=== PATIENT | male | born 1980 | race Caucasian/White ===

== ENCOUNTER 2018-03-12 16:38 | Emergency (ER) | payer OTHER ==
[2018-03-12 16:52] VITALS: TEMP 98.3
--- NOTE | 2018-03-12 17:37 | ED ---
General Adult HPI - General Chief complaint: Skin/Abscess/Foreign Body Stated complaint: cyst/leg & low back pain Time Seen by Provider: 03/12/18 17:18 Source: patient, RN notes reviewed Mode of arrival: ambulatory Limitations: no limitations - History of Present Illness Initial comments: Patient is a 37-year-old male who presents the emergency department with complaints of pilonidal cyst that he reports having for 8 years that has worsened in the past 2 months. He reports that he is supposed to see his PCP on March 23 to receive a referral to a surgeon for removal of the pilonidal cyst. He reports this was first diagnosed by a pain medicine doctor in [place] and that he had x-rays and an MRI done. He reports that the area has never been drained or had any kind of surgery done. He reports that he was on Bactrim 2 weeks ago which was prescribed by an ER provider. He also complains of back pain radiating to the chest for the past 2 weeks; he reports that he has has this off and on for a few months. He denies any cardiac or pulmonary disease history. Patient denies any recent cough, fever, chills, shortness of breath, abdominal pain, nausea or vomiting, numbness or tingling, headaches or visual changes, or any other complaints. - Related Data Previous Rx's Medication Instructions Recorded Clindamycin [Cleocin] 450 mg PO Q8H 7 Days capsule 03/12/18 Allergies Allergy/AdvReac Type Severity Reaction Status Date / Time Penicillins Allergy Anaphylaxis Verified 03/12/18 16:52 Review of Systems ROS Statement: Those systems with pertinent positive or pertinent negative responses have been documented in the HPI. ROS Other: All systems not noted in ROS Statement are negative. Past Medical History Additional Past Medical History / Comment(s): Rectal Cyst. History of Any Multi-Drug Resistant Organisms: None Reported Past Surgical History: Ear Surgery Past Psychological History: No Psychological Hx Reported Smoking Status: Current every day smoker Past Alcohol Use History: None Reported Past Drug Use History: None Reported General Exam Limitations: no limitations General appearance: alert, in no apparent distress Head exam: Present: atraumatic, normocephalic Eye exam: Present: normal appearance Respiratory exam: Present: normal lung sounds bilaterally Cardiovascular Exam: Present: regular rate, normal rhythm, normal heart sounds, other (DP and PT pulses palpable and strong bilaterally.) Neurological exam: Present: alert, oriented X3 Skin exam: Present: other (Approx. 15 cm area in gluteal cleft with 3 openings draining pus.) Course Vital Signs 03/12/18 03/12/18 16:49 18:59 Temperature 98.3 F Pulse Rate 101 H 78 Respiratory 20 18 Rate Blood Pressure 159/94 102/80 O2 Sat by Pulse 97 98 Oximetry EKG Findings - EKG Comments: EKG Findings:: EKG on 03/12/2018: Vent. rate 90 bpm. IL interval 150 ms. QRS duration 94 ms. QT/QTc 346/423 ms. P-R-T axes 48 21 38. Normal sinus rhythm. Normal ECG Medical Decision Making - Medical Decision Making No need for I&D at this time as the area is draining already. Given Tylenol and Toradol for pain. Given flexeril for muscle spasm (patient reports that the pain is giving him muscle spasms). Hips and pelvis x-ray reveals osteoarthritis ; no osteomyelitis. EKG is normal. CXR is normal. Will prescribe Clindamycin. 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 Case discussed in detail with Dr. Reese. - Lab Data Result diagrams: 03/12/18 20:30 03/12/18 20:30 Lab Results 03/12/18 03/12/18 03/12/18 Range/Units 20:30 20:30 20:30 WBC 10.0 (3.8-10.6) k/uL RBC 4.80 (4.30-5.90) m/uL Hgb 14.4 (13.0-17.5) gm/dL Hct 41.5 (39.0-53.0) % MCV 86.4 (80.0-100.0) fL MCH 30.0 (25.0-35.0) pg MCHC 34.7 (31.0-37.0) g/dL RDW 13.6 (11.5-15.5) % Plt Count 309 (150-450) k/uL Neutrophils % 67 % Lymphocytes % 22 % Monocytes % 5 % Eosinophils % 3 % Basophils % 0 % Neutrophils # 6.7 (1.3-7.7) k/uL Lymphocytes # 2.2 (1.0-4.8) k/uL Monocytes # 0.5 (0-1.0) k/uL Eosinophils # 0.3 (0-0.7) k/uL Basophils # 0.0 (0-0.2) k/uL PT (9.0-12.0) sec INR (<1.2) APTT (22.0-30.0) sec D-Dimer (<0.60) mg/L FEU Sodium 140 (137-145) mmol/L Potassium 4.4 (3.5-5.1) mmol/L Chloride 109 H (98-107) mmol/L Carbon Dioxide 26 (22-30) mmol/L Anion Gap 5 mmol/L BUN 16 (9-20) mg/dL Creatinine 0.77 (0.66-1.25) mg/dL Est GFR (CKD-EPI)AfAm >90 (>60 ml/min/1.73 sqM) Est GFR (CKD-EPI)NonAf >90 (>60 ml/min/1.73 sqM) Glucose 96 (74-99) mg/dL Calcium 9.0 (8.4-10.2) mg/dL Total Bilirubin 0.4 (0.2-1.3) mg/dL AST 24 (17-59) U/L ALT 36 (21-72) U/L Alkaline Phosphatase 43 (38-126) U/L Total Creatine Kinase 160 (55-170) U/L CK-MB (CK-2) 0.5 (0.0-2.4) ng/mL CK-MB (CK-2) Rel Index 0.3 Troponin I (0.000-0.034) ng/mL Total Protein 7.0 (6.3-8.2) g/dL Albumin 3.7 (3.5-5.0) g/dL 03/12/18 03/12/18 Range/Units 20:30 20:30 WBC (3.8-10.6) k/uL RBC (4.30-5.90) m/uL Hgb (13.0-17.5) gm/dL Hct (39.0-53.0) % MCV (80.0-100.0) fL MCH (25.0-35.0) pg MCHC (31.0-37.0) g/dL RDW (11.5-15.5) % Plt Count (150-450) k/uL Neutrophils % % Lymphocytes % % Monocytes % % Eosinophils % % Basophils % % Neutrophils # (1.3-7.7) k/uL Lymphocytes # (1.0-4.8) k/uL Monocytes # (0-1.0) k/uL Eosinophils # (0-0.7) k/uL Basophils # (0-0.2) k/uL PT 10.0 (9.0-12.0) sec INR 0.9 (<1.2) APTT 24.4 (22.0-30.0) sec D-Dimer 0.52 (<0.60) mg/L FEU Sodium (137-145) mmol/L Potassium (3.5-5.1) mmol/L Chloride (98-107) mmol/L Carbon Dioxide (22-30) mmol/L Anion Gap mmol/L BUN (9-20) mg/dL Creatinine (0.66-1.25) mg/dL Est GFR (CKD-EPI)AfAm (>60 ml/min/1.73 sqM) Est GFR (CKD-EPI)NonAf (>60 ml/min/1.73 sqM) Glucose (74-99) mg/dL Calcium (8.4-10.2) mg/dL Total Bilirubin (0.2-1.3) mg/dL AST (17-59) U/L ALT (21-72) U/L Alkaline Phosphatase (38-126) U/L Total Creatine Kinase (55-170) U/L CK-MB (CK-2) (0.0-2.4) ng/mL CK-MB (CK-2) Rel Index Troponin I <0.012 (0.000-0.034) ng/mL Total Protein (6.3-8.2) g/dL Albumin (3.5-5.0) g/dL Disposition Clinical Impression: Infection Disposition: HOME SELF-CARE Condition: Good Instructions: [place] (DC) Additional Instructions: Follow up with your PCP in 1-2 days for work up of your back pain. Please schedule an appointment with the surgeon on your discharge paperwork. Take your antibiotic as prescribed. Return to the emergency department if your symptoms worsen or any other concerns. Prescriptions: Clindamycin [Cleocin] 450 mg PO Q8H 7 Days capsule Is patient prescribed a controlled substance at d/c from ED?: No Referrals: Fabio Yusuf, DO [Primary Care Provider] - 1-2 days Loy Martinez DO [Doctor of Osteopathic Medicine] - 1-2 days
[2018-03-12] MEDS ORDERED: ACETAMINOPHEN TAB 500 MG TAB PO STA (18:43)
[2018-03-12 18:59] VITALS: RESP 18
--- NOTE | 2018-03-12 19:22 | XR ---
EXAMINATION TYPE: XR chest 2V DATE OF EXAM: 03/12/2018 COMPARISON: NONE HISTORY: Cough and chest pain TECHNIQUE: Frontal and lateral views of the chest are obtained. FINDINGS: Heart and mediastinum are normal. Lungs are clear. Diaphragm is normal. Bony thorax is int act. IMPRESSION: Normal chest
[2018-03-12] MEDS ORDERED: CYCLOBENZAPRINE 10 MG TAB PO STA (19:55)
[2018-03-12] MEDS ORDERED: KETOROLAC 60 MG/2 ML VIAL IM STA (19:55)
[2018-03-12] MEDS ORDERED: KETOROLAC 30 MG/ML 1 ML VIAL IVP STA (19:58)
[2018-03-12] MEDS ORDERED: SODIUM CHLORIDE 0.9% 1,000 ML IV SCH (20:15)
--- NOTE | 2018-03-12 20:26 | XR ---
EXAMINATION TYPE: XR Hip Bilateral and AP pelvis DATE OF EXAM: 03/12/2018 COMPARISON: NONE HISTORY: Pain TECHNIQUE: 5 views of the pelvis and both hips were obtained. The pelvic ring is intact. Proximal femurs are intact. There is no sign of hip dysplasia. There is mi ld symmetric acetabular spurring. Sacroiliac joints are intact. I see no bony destructive process. IMPRESSION: There is early hypertrophic osteoarthritic changes. No fracture. No evidence of avascular necrosis.
[2018-03-12 20:54] LABS: Basophils % (A) 0 %; Eosinophils # (A) 0.3 k/uL (0-0.7); Eosinophils % (A) 3 %; HCT 41.5 % (39.0-53.0); HGB 14.4 gm/dL (13.0-17.5); Lymphocytes # (A) 2.2 k/uL (1.0-4.8); Lymphocytes % (A) 22 %; MCHC 34.7 g/dL (31.0-37.0); MCV 86.4 fL (80.0-100.0); Mean Platelet Volume 6.6; Monocytes # (A) 0.5 k/uL (0-1.0); Monocytes % (A) 5 %; Neutrophils # (A) 6.7 k/uL (1.3-7.7); Neutrophils % (A) 67 %; Platelet Count 309 k/uL (150-450); RDW 13.6 % (11.5-15.5)
[2018-03-12 21:02] LABS: ALT 36 U/L (21-72); AST 24 U/L (17-59); Albumin 3.7 g/dL (3.5-5.0); Alkaline Phosphatase 43 U/L (38-126); Anion Gap 5 mmol/L; Blood Urea Nitrogen 16 mg/dL (9-20); Carbon Dioxide 26 mmol/L (22-30); Chloride 109 mmol/L (98-107); Glucose 96 mg/dL (74-99); Potassium 4.4 mmol/L (3.5-5.1); Sodium 140 mmol/L (137-145); Total Bilirubin 0.4 mg/dL (0.2-1.3)
[2018-03-12 21:06] LABS: D-Dimer 0.52 mg/L FEU (<0.60); INR 0.9 (<1.2); Partial Thromboplastin Time 24.4 sec (22.0-30.0)
[2018-03-12 21:25] LABS: Creatine Kinase MB 0.5 ng/mL (0.0-2.4)
[2018-03-12] MEDS ORDERED: CLINDAMYCIN 150 MG CAP PO STA (22:21)
[2018-03-12 22:33] VITALS: BP 124/72; PULSE 85
== END 2018-03-12 22:45 | disposition home or self-care (01) ==
LOC: EC 16:38
DX: B99.9 Unspecified infectious disease (principal); M16.0 Bilateral primary osteoarthritis of hip; L05.91 Pilonidal cyst without abscess; R07.9 Chest pain, unspecified; M54.9 Dorsalgia, unspecified; F17.200 Nicotine dependence, unspecified, uncomplicated; Z88.0 Allergy status to penicillin
CPT/HCPCS: 99284; 96374; 96361 ×2; 36415; 93005; 85379; 80053; 82550; 82553; 84484; 85025; 85610; 85730; 87070; 87205; 73521; 71046; J1885

== ENCOUNTER 2018-06-21 18:16 | Inpatient (IN) | payer OTHER ==
--- NOTE | 2018-06-21 19:15 | ED ---
Skin/Abscess/FB HPI - General Chief complaint: Skin/Abscess/Foreign Body Stated complaint: Cyst Time Seen by Provider: 06/21/18 18:27 Source: patient, EMS, RN notes reviewed, old records reviewed Mode of arrival: EMS Limitations: no limitations - History of Present Illness Initial comments: This is a 38-year-old male the ER for evaluation. Patient accepted as a transfer patient. Patient's sent to emergency room from [facility] for evaluation regarding infection prognosis. Patient does complain of severe pain severe back pain severe lower back pain buttox pain. Patient denies any fevers. No history of diabetes MD complaint: abscess/boil (pilonidal) -: month(s) Tetanus Up to Date: unsure Location: buttocks Severity: severe Severity scale (1-10): 7 Quality: aching, constant Consistency: constant Improves with: none Worsens with: none Context: recent illness Associated symptoms: fever, chills Treatments Prior to Arrival: none - Related Data Home Medications Medication Instructions Recorded Confirmed No Known Home Medications 06/21/18 06/21/18 Allergies Allergy/AdvReac Type Severity Reaction Status Date / Time hydromorphone [From Dilaudid] Allergy Rash/Hives Verified 06/21/18 19:51 Penicillins Allergy Anaphylaxis Verified 06/21/18 19:06 Review of Systems ROS Statement: Those systems with pertinent positive or pertinent negative responses have been documented in the HPI. ROS Other: All systems not noted in ROS Statement are negative. Past Medical History Additional Past Medical History / Comment(s): Rectal Cyst. History of Any Multi-Drug Resistant Organisms: None Reported Past Surgical History: Ear Surgery Past Psychological History: No Psychological Hx Reported Smoking Status: Current every day smoker Past Alcohol Use History: None Reported Past Drug Use History: None Reported General Exam Limitations: no limitations General appearance: alert, in no apparent distress Head exam: Present: atraumatic, normocephalic, normal inspection Eye exam: Present: normal appearance, PERRL, EOMI. Absent: scleral icterus, conjunctival injection, periorbital swelling ENT exam: Present: normal exam, mucous membranes moist Neck exam: Present: normal inspection. Absent: tenderness, meningismus, lymphadenopathy Respiratory exam: Present: normal lung sounds bilaterally. Absent: respiratory distress, wheezes, rales, rhonchi, stridor Cardiovascular Exam: Present: regular rate, normal rhythm, normal heart sounds. Absent: systolic murmur, diastolic murmur, rubs, gallop, clicks GI/Abdominal exam: Present: soft, normal bowel sounds. Absent: distended, tenderness, guarding, rebound, rigid Rectal exam: Present: tenderness, other (abscess pilonidal) Extremities exam: Present: normal inspection, full ROM, normal capillary refill. Absent: tenderness, pedal edema, joint swelling, calf tenderness Back exam: Present: normal inspection Neurological exam: Present: alert, oriented X3, CN II-XII intact Psychiatric exam: Present: normal affect, normal mood Skin exam: Present: warm, dry, intact, normal color. Absent: rash Course Vital Signs 06/21/18 06/21/18 06/21/18 18:24 19:00 20:00 Temperature 99.6 F Pulse Rate 94 Respiratory 18 Rate Blood Pressure 133/66 133/66 122/88 O2 Sat by Pulse 100 71 L 98 Oximetry - Reevaluation(s) Reevaluation #1: 06/21/18 20:44 Medical record is reviewed transferring paperwork is reviewed Reevaluation #2: 06/21/18 20:44 Abscess remains open and draining Medical Decision Making - Medical Decision Making Recent male the ER for evaluation, patient except in transfer for significant bilateral abscesses with drainage. Patient be admitted for probable abscess draining, IV antibiotics Disposition Clinical Impression: Pilonidal cyst, Abscess Disposition: ADMITTED IP TO THIS HOSP Condition: Fair Is patient prescribed a controlled substance at d/c from ED?: No Referrals: Fabio Yusuf DO [Primary Care Provider] - 1-2 days
[2018-06-21] MEDS ORDERED: HYDROmorphone 1 MG/ML 1 ML SYRINGE IVP STA (19:30)
[2018-06-21] MEDS ORDERED: VANCOMYCIN IV PER PHARMACY 1 EACH MISC MISCELLANE PRN (19:31)
[2018-06-21] MEDS ORDERED: HYDROmorphone 1 MG/ML 1 ML SYRINGE IVP PRN (19:31)
[2018-06-21] MEDS ORDERED: MORPHINE SULFATE 4 MG/ML SYRINGE IVP STA ×3 (19:52→21:00)
[2018-06-21] MEDS ORDERED: VANCOMYCIN 2,500 MG in SODIUM CHLORIDE 0.9% 500 ML 500 ML IVPB ONE (20:00)
[2018-06-21] MEDS ORDERED: SODIUM CHLORIDE 0.9% 1,000 ML IV ONE (20:25)
[2018-06-21] MEDS ORDERED: ONDANSETRON 4 MG/2 ML VIAL IVP STA (20:54)
[2018-06-21 21:57] VITALS: BMI 43.7
[2018-06-21] MEDS: MORPHINE SULFATE 4 MG/ML SYRINGE IVP PRN (23:19)
[2018-06-21] MEDS ORDERED: LORazepam 2 MG/ML INJ IV STA (23:31)
[2018-06-21] MEDS: HYDROcodone/APAP 5-325MG 1 EACH TAB PO PRN (23:41)
[2018-06-22] MEDS: HYDROcodone/APAP 5-325MG 1 EACH TAB PO PRN ×4 (01:06→21:25)
[2018-06-22] MEDS: MORPHINE SULFATE 4 MG/ML SYRINGE IVP PRN ×6 (03:18→23:25)
[2018-06-22] MEDS: VANCOMYCIN 2,000 MG in SODIUM CHLORIDE 0.9% 500 ML 500 ML IVPB SCH ×3 (06:12→23:20)
[2018-06-22] MEDS: ENOXAPARIN 40 MG/0.4 ML SYRINGE SQ SCH (08:02)
[2018-06-22 11:40] LABS: Glucose,Whole Blood 96 mg/dL (75-99)
[2018-06-22] MEDS ORDERED: MORPHINE SULFATE 2 MG/ML SYRINGE IVP STA (11:40)
[2018-06-22 12:09] LABS: Anion Gap 9 mmol/L; Blood Urea Nitrogen 15 mg/dL (9-20); Carbon Dioxide 24 mmol/L (22-30); Chloride 104 mmol/L (98-107); Glucose 95 mg/dL (74-99); Potassium 4.9 mmol/L (3.5-5.1); Sodium 137 mmol/L (137-145)
--- NOTE | 2018-06-22 14:59 | P.GSHP ---
History of Present Illness H&P Date: 06/22/18 Chief Complaint: Pilonidal cyst CHIEF COMPLAINT: Pilonidal cyst HISTORY OF PRESENT ILLNESS: 38-year-old male who transferred to [facility] from [facility] secondary to pilonidal cyst. Patient reports he had surgery scheduled about a month ago to have the cyst removed but has not emergency with his daughter and did not go to his surgical appointment. Patient has not followed up since that time. Patient's pain has continued to increase and he presented to emergency room for further evaluation. Patient reports having fevers at home. Reports intermittent drainage from area. PAST MEDICAL HISTORY: See list. PAST SURGICAL HISTORY: See list. SOCIAL HISTORY: No illicit drug use. REVIEW OF SYSTEMS: CONSTITUTIONAL: Denies fever or chills. HEENT: Denies blurred vision, vision changes, or eye pain. Denies hemoptysis CARDIOVASCULAR: Denies chest pain or pressure. RESPIRATORY: No shortness of breath. GASTROINTESTINAL: Denies abdominal pain. Denies nausea or vomiting. HEMATOLOGIC: Denies bleeding disorders. GENITOURINARY: Denies any blood in urine. SKIN: Reports known pilonidal cyst with intermittent drainage. Denies pruitis. Denies rash. PHYSICAL EXAM: VITAL SIGNS: Reviewed. GENERAL: Well-developed in no acute distress. HEENT: No sclera icterus. Extraocular movements grossly intact. Moist buccal mucosa. Head is atraumatic, normocephalic. ABDOMEN: Soft. Nondistended. Nontender. NEUROLOGIC: Alert and oriented. Cranial nerves II through XII grossly intact. SKIN: Pilonidal cyst present with small amount of drainage. Buttocks very tender and firm. IMAGING: CT pelvis with IV contrast reveals small 1.40.9 cm air-containing abscess at th e distal aspect of the coccyx with findings suggesting early osteomyelitis. ASSESSMENT: 1. Pilonidal cyst PLAN: Dr. Smith examined patient at bedside. Cyst with small amount of drainage today. Will re-evaluate tomorrow for bedside I&D. Regular diet today. NPO after midnight. Continue antibiotics. Infectious disease consulted. Will consult Dr. Kemp for medical management. Nurse practitioner note has been reviewed by physician. Signing provider agrees with the documented findings, assessment, and plan of care. Past Medical History Additional Past Medical History / Comment(s): Rectal Cyst. History of Any Multi-Drug Resistant Organisms: None Reported Past Surgical History: Ear Surgery Past Psychological History: No Psychological Hx Reported Smoking Status: Current every day smoker Past Alcohol Use History: None Reported Past Drug Use History: None Reported Medications and Allergies Home Medications Medication Instructions Recorded Confirmed Type No Known Home Medications 06/21/18 06/21/18 History Allergies Allergy/AdvReac Type Severity Reaction Status Date / Time hydromorphone [From Dilaudid] Allergy Rash/Hives Verified 06/21/18 19:51 Penicillins Allergy Anaphylaxis Verified 06/21/18 19:06 Surgical - Exam Vital Signs Temp Pulse Resp BP Pulse Ox 99.6 F 94 18 133/66 100 06/21/18 18:24 06/21/18 18:24 06/21/18 18:24 06/21/18 18:24 06/21/18 18:24 Results - Labs 06/22/18 11:45 Diabetes panel 06/22/18 Range/Units 11:45 Sodium 137 (137-145) mmol/L Potassium 4.9 (3.5-5.1) mmol/L Chloride 104 (98-107) mmol/L Carbon Dioxide 24 (22-30) mmol/L BUN 15 (9-20) mg/dL Creatinine 0.96 (0.66-1.25) mg/dL Glucose 95 (74-99) mg/dL Calcium 9.0 (8.4-10.2) mg/dL Calcium panel 06/22/18 Range/Units 11:45 Calcium 9.0 (8.4-10.2) mg/dL Pituitary panel 06/22/18 Range/Units 11:45 Sodium 137 (137-145) mmol/L Potassium 4.9 (3.5-5.1) mmol/L Chloride 104 (98-107) mmol/L Carbon Dioxide 24 (22-30) mmol/L BUN 15 (9-20) mg/dL Creatinine 0.96 (0.66-1.25) mg/dL Glucose 95 (74-99) mg/dL Calcium 9.0 (8.4-10.2) mg/dL Adrenal panel 06/22/18 Range/Units 11:45 Sodium 137 (137-145) mmol/L Potassium 4.9 (3.5-5.1) mmol/L Chloride 104 (98-107) mmol/L Carbon Dioxide 24 (22-30) mmol/L BUN 15 (9-20) mg/dL Creatinine 0.96 (0.66-1.25) mg/dL Glucose 95 (74-99) mg/dL Calcium 9.0 (8.4-10.2) mg/dL
[2018-06-22 16:42] LABS: Basophils % (A) 0 %; Eosinophils # (A) 0.2 k/uL (0-0.7); Eosinophils % (A) 2 %; HCT 47.5 % (39.0-53.0); HGB 15.9 gm/dL (13.0-17.5); Lymphocytes # (A) 0.9 k/uL (1.0-4.8); Lymphocytes % (A) 7 %; MCH 28.3 pg (25.0-35.0); MCHC 33.5 g/dL (31.0-37.0); MCV 84.6 fL (80.0-100.0); Mean Platelet Volume 7.5; Monocytes # (A) 0.4 k/uL (0-1.0); Monocytes % (A) 3 %; Neutrophils # (A) 10.8 k/uL (1.3-7.7); Neutrophils % (A) 87 %; Platelet Count 222 k/uL (150-450); RBC 5.61 m/uL (4.30-5.90); RDW 14.7 % (11.5-15.5); WBC 12.4 k/uL (3.8-10.6)
[2018-06-22] MEDS: NICOTINE 14MG/24HR PATCH TRANSDERM SCH (16:43)
--- NOTE | 2018-06-22 20:31 | CT ---
EXAMINATION TYPE: CT sacrum wo con DATE OF EXAM: 06/22/2018 COMPARISON: HISTORY: Sacrum wound, cyst, abscess. CT DLP: 2398.6 mGycm Automated exposure control for dose reduction was used. FINDINGS: The distal tip of the coccyx shows subcentimeter cortical disruption, best seen on the sag ittal sequence, and immediately distal to this cortex finding is the soft tissue process described be low. Just distal to the tip of the coccyx is a 2 x 1 x 1 cm gas bubble. Surrounding this gas bubble is an irregularly-shaped soft tissue CT-attenuation process measuring 4 cm mean diameter and surrounded its elf with edematous inflammatory change extending anteriorly to the levator ani and presacral space an d posteriorly to the gluteal fold. By noncontrast CT criteria, there is no definite drainable fluid collection. The relationship of this phlegmon/abscess process with the surrounding structures mentioned above can be best visualized with high-resolution lower pelvis coccygeal MRI with contrast. MRI can concurrently assess for osteomyeli tis of the coccyx. When compared to the 06/21/2018 3:[address] obtained in the prone position, the findings are si milar. IMPRESSION: SOFT TISSUE PHLEGMON/ABSCESS DISCUSSED, INTIMATELY RELATED TO THE DISTAL TIP OF THE COCCYX AND DULCE PICIOUS FOR OSTEOMYELITIS.
[2018-06-22] MEDS: ALPRAZolam 0.25 MG TAB PO PRN (21:26)
--- NOTE | 2018-06-22 22:28 | CONS ---
CONSULTATION DATE OF SERVICE: 06/22/2018 REASON FOR CONSULTATION: Advice regarding pilonidal cyst and other multiple medical issues requested by Surgery. HISTORY OF PRESENT ILLNESS: This 38-year-old gentleman who has been followed by in the outpatient setting was noted to have a pilonidal cyst and discharge from the back area. Patient came to [facility] and was admitted for further evaluation and treatment. Patient has history of nicotine dependence. Dr. Pemberton and Dr. Smith are following the patient closely. The patient apparently missed surgery a month ago. PAST MEDICAL HISTORY: History of pilonidal cyst, history of nicotine dependence. MEDICATIONS ARE: None. ALLERGIES: DILAUDID, PENICILLIN. FAMILY HISTORY: No history of heart disease or strokes in the family. SOCIAL HISTORY: History of smoking. No history of alcohol intake. REVIEW OF SYSTEMS: ENT: No diminished vision. No diminished hearing. CARDIOVASCULAR: No angina or palpitations. RESPIRATIONS: No cough. GI no nausea or vomiting. no dysuria. CENTRAL NERVOUS SYSTEM: No numbness or weakness. ALLERGY/IMMUNOLOGY: No asthma or hayfever. MUSCULOSKELETAL: As mentioned earlier. HEMATOLOGY/ONCOLOGY: No history of anemia. ENDOCRINE: No history of diabetes or hypothyroidism. CONSTITUTIONAL: As mentioned earlier. Dermatology: Negative. Rheumatology: Negative. Psychiatry: As mentioned earlier. PHYSICAL EXAMINATION: Alert and oriented times three. Pulse is 116. Blood pressure 108/50, respirations 16, temperature 97.4. T-max 100.2, pulse ox 94% on room air. HEENT: Conjunctivae normal. NECK: No jugular venous distention. CARDIOVASCULAR: S1, S2 muffled. RESPIRATORY: Breath sounds diminished at the bases. No rhonchi. No crackles. ABDOMEN: Soft, obese, nontender. Legs: No edema. No swelling. Central nervous system: No focal deficits. Pilonidal cyst present. LABS: BMP noted. ASSESSMENT: 1. Pilonidal cyst with cellulitis, infection, fever. 2. History of nicotine dependence. 3. Obesity with body mass of 43.8. RECOMMENDATIONS AND DISCUSSION: In this 38-year-old gentleman who presented with multiple medical problems, we will monitor the patient closely, continue the current medications, management and symptomatic treatment. Infectious Disease has been consulted. I recommend repeat labs. Closely monitor. Cultures have been obtained. Symptomatic treatment obtained. Smoking cessation. DVT prophylaxis. We will follow the patient closely with you. The patient may be asked to follow with Dr. Joshua closely after surgery. Thank you Dr. Smith for letting us participate in the care of this patient. MMODL / IJN: [id number] / [email or web address]
--- NOTE | 2018-06-22 23:43 | CONS ---
CONSULTATION DATE OF SERVICE: 06/22/2018 REASON FOR CONSULTATION: Abscess of the sacral area. HISTORY OF PRESENT ILLNESS: The patient is a 38-year-old male with a past medical history significant for pilonidal cyst with some conflicting history of previous surgery for the same site. The patient has had a nonhealing wound to the sacrum area for more than a month now. Apparently it has been treated in the outpatient setting; not sure about what antibiotic has been used. The patient presented to an outside hospital with worsening pain to the sacral area, describing the pain to be sharp and throbbing, almost 10/10, and worse with movement of his body. The patient denies significant drainage from that area. He did have some fever, 101 degrees Fahrenheit. With these symptoms, the patient was evaluated at the outside facility and subsequently transferred to this facility for management of pilonidal cyst. The patient was started on vancomycin and Rocephin. Infectious Disease was consulted for further recommendations regarding antibiotic therapy. REVIEW OF SYSTEMS: Positive points have been mentioned in the HPI. Rest of the systems are negative. PAST MEDICAL HISTORY: Significant for pilonidal cyst. PAST SURGICAL HISTORY: Ear surgery. SOCIAL HISTORY: Current everyday smoker. Denies drinking or drug use. FAMILY HISTORY: No pertinent findings noticed. ALLERGIES: PENICILLIN with a rash tolerated Rocephin without any problem. Also an allergy to HYDROMORPHONE. CURRENT MEDICATIONS: 1. Payne. 2. Xanax. 3. Rocephin 1 gram daily. 4. Lovenox. 5. Vancomycin 2 grams q.8 hours. PHYSICAL EXAMINATION: Blood pressure is 122/62 with a pulse of 104, temperature 97.4, T-max 100.2. He is 95% on room air. General description is a middle-aged male lying in bed in no distress. No tachypnea or accessory muscle of respiration use. HEENT examination shows no pallor or scleral icterus. Oral mucosa membrane is dry. No pharyngeal erythema or thrush. NECK: Trachea is central. No thyromegaly. LUNGS: Unlabored breathing. Clear to auscultation anteriorly. No wheeze or crackle. HEART: S1, S2. Regular rate and rhythm. No added sound. ABDOMEN: Soft. No tenderness. No guarding or rigidity. EXTREMITIES: No edema of the feet. EXAMINATION OF SACRAL AREA: The patient did have a wound, currently packed, with minimal surrounding erythema. No foul-smelling drainage. Slightly tender to touch. Neurologically the patient is awake, alert, oriented x3. Mood and affect normal. LABS: Hemoglobin is 15.9, white count 12.4, BUN of 15, creatinine 0.96. DIAGNOSTIC IMPRESSION AND PLAN: 1. Patient with a chronic infected pilonidal cyst/sacral wound, failing outpatient therapy. Will need to cover for the gram-positive angela as well as gram-negative in view of close proximity to the GI tract. 2. Patient does have PENICILLIN ALLERGY. That will limit the number of antibiotics that can be safely used. PLAN: 1. We will obtain a CT of the sacral area to make sure there is no evidence of any abscess or more sensitive antibiotic therapy. 2. Wound culture at the time of surgical drainage. 3. Vancomycin, Pharmacy to dose. Target of 15, while watching his kidney function closely. 4. Will follow up on clinical condition as well as cultures to further adjust medication if needed. Thank you for this consultation. Will follow this patient along with you. MMODL / IJN: [id number] /
[2018-06-23] MEDS: MORPHINE SULFATE 4 MG/ML SYRINGE IVP PRN ×5 (05:25→22:38)
[2018-06-23] MEDS: VANCOMYCIN 2,000 MG in SODIUM CHLORIDE 0.9% 500 ML 500 ML IVPB SCH ×3 (05:58→22:33)
[2018-06-23] MEDS: ENOXAPARIN 40 MG/0.4 ML SYRINGE SQ SCH (08:18)
[2018-06-23] MEDS: NICOTINE 14MG/24HR PATCH TRANSDERM SCH (08:18)
[2018-06-23] MEDS: LIDOCAINE 1%-EPI 1:100,000 20 ML VIAL SQ SCH ×2 (08:59→12:22)
[2018-06-23 09:55] LABS: Basophils % (A) 0 %; Eosinophils # (A) 0.2 k/uL (0-0.7); Eosinophils % (A) 1 %; HCT 38.5 % (39.0-53.0); HGB 13.1 gm/dL (13.0-17.5); Lymphocytes # (A) 1.6 k/uL (1.0-4.8); Lymphocytes % (A) 10 %; MCH 29.3 pg (25.0-35.0); MCHC 34.1 g/dL (31.0-37.0); MCV 86.2 fL (80.0-100.0); Mean Platelet Volume 7.4; Monocytes # (A) 0.8 k/uL (0-1.0); Monocytes % (A) 5 %; Neutrophils # (A) 13.8 k/uL (1.3-7.7); Neutrophils % (A) 83 %; Platelet Count 296 k/uL (150-450); RBC 4.47 m/uL (4.30-5.90); WBC 16.6 k/uL (3.8-10.6)
[2018-06-23] MEDS: HYDROcodone/APAP 5-325MG 1 EACH TAB PO PRN ×2 (12:24→21:16)
[2018-06-23] MEDS ORDERED: VANCOMYCIN TROUGH DUE 1 EACH MISC MISCELLANE ONE (13:00)
--- NOTE | 2018-06-23 13:47 | P.PN ---
Subjective Progress Note Date: 06/23/18 CHIEF COMPLAINT: Pilonidal cyst HISTORY OF PRESENT ILLNESS: Patient examined at the bedside. Patient continues to complain of severe pain to coccyx region. Reports some drainage from area this morning. WBC 16.6. Infectious disease is following. PHYSICAL EXAM: VITAL SIGNS: Reviewed. GENERAL: Well-developed in no acute distress. HEENT: No sclera icterus. Extraocular movements grossly intact. Moist buccal mucosa. Head is atraumatic, normocephalic. ABDOMEN: Soft. Nondistended. Nontender. NEUROLOGIC: Alert and oriented. Cranial nerves II through XII grossly intact. SKIN: Pilonidal cyst present with small amount of drainage. Buttocks very tender and firm. ASSESSMENT: 1. Pilonidal cyst PLAN: Regular diet today. Nothing by mouth after midnight. Patient to undergo excision of pilonidal cyst tomorrow with Dr. Smith Nurse practitioner note has been reviewed by physician. Signing provider agrees with the documented findings, assessment, and plan of care. Objective - Vital Signs Vital signs: Vital Signs Temp 99.1 F 06/23/18 05:15 Pulse 113 H 06/23/18 05:15 Resp 20 06/23/18 08:00 BP 117/66 06/23/18 05:15 Pulse Ox 95 06/23/18 05:15 Intake & Output 06/22/18 06/23/18 06/23/18 18:59 06:59 18:59 Intake Total 740 400 Balance 740 400 Intake: Oral 740 400 Other: Voiding Method Toilet Toilet Urinal Urinal # Voids 1 1 2 # Bowel Movements 0 - Labs CBC & Chem 7: 06/23/18 08:05 06/22/18 11:45 Labs: Abnormal Lab Results - Last 24 Hours (Table) 06/22/18 06/23/18 Range/Units 16:13 08:05 WBC 12.4 H 16.6 H (3.8-10.6) k/uL Hct 38.5 L (39.0-53.0) % Neutrophils # 10.8 H 13.8 H (1.3-7.7) k/uL Lymphocytes # 0.9 L (1.0-4.8) k/uL Microbiology - Last 24 Hours (Table) 06/22/18 15:20 Gram Stain - Preliminary Buttock Wound Culture - Preliminary
--- NOTE | 2018-06-23 16:30 | PN ---
PROGRESS NOTE DATE OF SERVICE: 06/23/2018 REASON FOR FOLLOWUP: Infected pilonidal cyst with a question of osteomyelitis. INTERVAL HISTORY: The patient did spike a fever last night to 101.4. The patient is afebrile this morning. The patient has been complaining of itching that possibly started after the patient took his [place]. The patient denies having any chest pain or shortness of breath or cough. No abdominal pain or diarrhea. PHYSICAL EXAMINATION: Blood pressure 123/61 with a pulse of 73, temperature 98.9. He is 93% on room air. General description is a middle-aged male lying in bed in no distress. RESPIRATORY SYSTEM: Unlabored breathing. Clear to auscultation anteriorly. HEART: S1, S2. Regular rate and rhythm. ABDOMEN: Soft. No tenderness. LABS: Hemoglobin 13.1, white count 16.6, BUN of 15, creatinine 0.96. DIAGNOSTIC IMPRESSION AND PLAN: Patient with infected pilonidal cyst with question of possible osteomyelitis. Awaiting surgical debridement of the same, at which time a deep culture should be obtained. Wound culture obtained yesterday currently showing gram-positive as well as gram- negative. Patient is on IV Rocephin and vancomycin. Vancomycin will be continued. Rocephin to be switched to cefepime while waiting for the sensitivities to finalize. Continue supportive care. MMODL / IJN: [id number] /
--- NOTE | 2018-06-23 20:24 | PN ---
PROGRESS NOTE DATE OF SERVICE: 06/23/2018 This 38-year-old gentleman who was admitted with infected pilonidal sinus cyst is scheduled for surgery. No chest pain. No palpitations. No fever. Patient has complaints of severe pain. EXAM: Alert and oriented times three. Pulse 73, blood pressure 120/63, respiration 17, temperature 98.9, pulse ox 93% on room air. HEENT: Conjunctivae normal. NECK: No jugular venous distention. CARDIOVASCULAR: S1, S2 muffled. RESPIRATION: Breath sounds diminished in the bases. A few rhonchi. No crackles. ABDOMEN is soft, nontender. LEGS are no edema. No swelling. CENTRAL NERVOUS SYSTEM: No focal deficits. LABS: WBC 16.2, hemoglobin 13.1. ASSESSMENT: 1. Pilonidal cyst with cellulitis infection and fever. 2. History of nicotine dependence. 3. Obesity with body mass index of 43.8. 4. Increased WBC. RECOMMENDATIONS AND DISCUSSION: Recommend to continue current medications, management and symptomatic treatment and continue with antibiotics. Follow the cultures. Otherwise, closely with Infectious Disease and Surgery. Further recommendations to follow. MMODL / IJN: [id number] /
[2018-06-23] MEDS ORDERED: LIDOCAINE 1% 20 ML VIAL (10MG/ML) FOR IV START INTRADERMA PRN (21:02)
[2018-06-23] MEDS ORDERED: MIDAZOLAM (PF) 2 MG/2 ML VIAL IV PRN (21:02)
[2018-06-23] MEDS ORDERED: ONDANSETRON 4 MG/2 ML VIAL IVP ONE (21:02)
[2018-06-23] MEDS ORDERED: DEXAMETHASONE SOD PHOSPHATE 10 MG/ML 1 ML VIAL IV ONE (21:02)
[2018-06-23] MEDS: ALPRAZolam 0.25 MG TAB PO PRN (21:17)
[2018-06-24] MEDS: MORPHINE SULFATE 4 MG/ML SYRINGE IVP PRN ×5 (02:24→21:15)
[2018-06-24] MEDS: VANCOMYCIN 2,000 MG in SODIUM CHLORIDE 0.9% 500 ML 500 ML IVPB SCH ×3 (05:57→22:41)
[2018-06-24] MEDS: NICOTINE 14MG/24HR PATCH TRANSDERM SCH (08:06)
[2018-06-24] MEDS: ENOXAPARIN 40 MG/0.4 ML SYRINGE SQ SCH (08:06)
[2018-06-24] MEDS: ONDANSETRON 4 MG/2 ML VIAL IVP PRN ×2 (09:07→16:29)
[2018-06-24] MEDS ORDERED: IV FLUID CONTINUATION 1,000 ML IV ONE (09:07)
[2018-06-24] MEDS ORDERED: fentaNYL (PF) 50 MCG/ML 2 ML AMP IV ONE (09:20)
[2018-06-24] MEDS: fentaNYL (PF) 50 MCG/ML 2 ML AMP IV PRN ×3 (09:25→11:25)
[2018-06-24] MEDS ORDERED: fentaNYL (PF) 50 MCG/ML 2 ML AMP ONE (10:11)
[2018-06-24] MEDS ORDERED: PROPOFOL 10 MG/ML 20 ML VIAL IV ONE (10:11)
[2018-06-24] MEDS ORDERED: KETOROLAC 30 MG/ML 1 ML VIAL ONE (10:11)
[2018-06-24] MEDS ORDERED: MIDAZOLAM 2 MG/2 ML VIAL ONE (10:11)
[2018-06-24] MEDS ORDERED: SUCCINYLCHOLINE CHLORIDE VIAL 200 MG/10 ML VIAL IV ONE (10:11)
[2018-06-24] MEDS ORDERED: LIDOCAINE 1% INJ 10MG/ML (20 ML MDV) ONE (10:11)
[2018-06-24] MEDS: LACTATED RINGERS 1,000 ML IV SCH ×2 (10:43→22:44)
[2018-06-24] MEDS ORDERED: BUPIVACAIN-EPI 0.5%-1:200,000 30 ML VIAL SQ ONE (10:48)
--- NOTE | 2018-06-24 10:54 | P.OP ---
Date of Procedure: 06/24/18 Preoperative Diagnosis: Chronic pilonidal cyst with abscess Postoperative Diagnosis: Chronic pilonidal cyst with abscess Procedure(s) Performed: Excision of pilonidal cyst with drainage of abscess Anesthesia: LUIS ANTONIO Surgeon: Raf Smith Estimated Blood Loss (ml): 5 Pathology: other (Pilonidal cyst) Condition: stable Disposition: PACU Description of Procedure: The patient's placed on the operating table in the supine position. He received anesthesia. He was then placed in the prone position. His pilonidal cyst area was prepped and draped usual sterile fashion. The patient had a large chronic pilonidal cyst with a evidence of drainage. There is no abscess which extended posteriorly towards the rectum. This area was unroofed. The pilonidal cyst was excised using which cautery. The chronically inflamed skin was excised. Patient top she will was sent to recovery in stable condition.. The wound was then packed with wet-to-dry Kerlix.
[2018-06-24] MEDS: LIDOCAINE 1%-EPI 1:100,000 20 ML VIAL SQ SCH (12:06)
[2018-06-24 12:55] LABS: Anion Gap 6 mmol/L; Blood Urea Nitrogen 12 mg/dL (9-20); Calcium 8.6 mg/dL (8.4-10.2); Carbon Dioxide 21 mmol/L (22-30); Chloride 114 mmol/L (98-107); Glucose 95 mg/dL (74-99); Sodium 141 mmol/L (137-145)
[2018-06-24 13:00] LABS: Potassium 5.3 mmol/L (3.5-5.1)
[2018-06-24 13:22] LABS: Basophils % (A) 0 %; Eosinophils # (A) 0.3 k/uL (0-0.7); Eosinophils % (A) 3 %; HGB 12.6 gm/dL (13.0-17.5); Lymphocytes # (A) 1.2 k/uL (1.0-4.8); Lymphocytes % (A) 12 %; MCH 28.2 pg (25.0-35.0); MCV 85.5 fL (80.0-100.0); Mean Platelet Volume 8.1; Monocytes # (A) 0.4 k/uL (0-1.0); Monocytes % (A) 5 %; Neutrophils # (A) 7.6 k/uL (1.3-7.7); Neutrophils % (A) 79 %; Platelet Count 302 k/uL (150-450); RBC 4.45 m/uL (4.30-5.90); RDW 14.5 % (11.5-15.5); WBC 9.6 k/uL (3.8-10.6)
[2018-06-24] MEDS: HYDROcodone/APAP 5-325MG 1 EACH TAB PO PRN ×2 (13:42→20:43)
--- NOTE | 2018-06-24 16:37 | PN ---
PROGRESS NOTE DATE OF SERVICE: 06/24/2018 This 38-year-old gentleman who was admitted with a chronic pilonidal cyst and abscess had excision of the pilonidal cyst with drainage of abscess by Dr. Smith. The patient is being closely monitored. The patient is on broad-spectrum IV antibiotics. Cultures are negative so far. On exam, alert and oriented x3. Pulse 89, blood pressure 126/92, respiration 18, temperature 98.2, pulse ox 98% on 2 L. HEENT: Conjunctivae normal. NECK: No jugular venous distention. CARDIOVASCULAR SYSTEM: S1, S2 muffled. RESPIRATORY SYSTEM: Breath sounds diminished at the bases. No rhonchi. No crackles. ABDOMEN: Soft, non-tender. No mass palpable. LEGS: No edema. No swelling. NERVOUS SYSTEM: No focal deficit. EXAMINATION OF THE BACK: Status post excision of pilonidal cyst. LABS: WBC 9.6, hemoglobin 12.6, sodium 141, potassium 5.3. ASSESSMENT: 1. Pilonidal cyst with cellulitis with infection and possible early sepsis, present on admission. 2. History of nicotine dependence. 3. Obesity with body mass index of 43.8. 4. Increased white count. 5. Increased potassium. RECOMMENDATIONS AND DISCUSSION: In this 37-year-old gentleman who presented with multiple medical issues, we will monitor the patient closely, continue the current medications, continue with symptomatic treatment. Otherwise, broad-spectrum IV antibiotics have been initiated. Will obtain the cultures. Otherwise closely monitor. Guarded prognosis because of multiple complex medical issues. Further recommendations to follow. MMODL / IJN: [id number] /
--- NOTE | 2018-06-24 20:07 | PN ---
PROGRESS NOTE DATE OF SERVICE: 06/24/2018. REASON FOR FOLLOWUP: Infected pilonidal cyst/sacral osteomyelitis. INTERVAL HISTORY: The patient was taken to the OR today. The patient is status post excision of the pilonidal cyst with drainage of the abscess. Unfortunately, no cultures done. The patient has been complaining of pain to the sacral area slightly worse after surgery. Denies having any chest pain or shortness of breath or cough. No abdominal pain. No diarrhea. PHYSICAL EXAMINATION: Blood pressure 126/92 with a pulse of 79, temperature 98.2. He is 97% on room air. General description is a middle-aged male lying in bed in no distress. Respiratory system: Unlabored breathing, clear to auscultation anteriorly. Heart S1, S2. Regular rate and rhythm. Abdomen soft, no tenderness. Wound to the sacral area is currently dressed up. LABS: Hemoglobin is 12.5, white count 9.6 with a BUN of 12, creatinine 0.80. DIAGNOSTIC IMPRESSION AND PLAN: Patient with infected pilonidal cyst with secondary osteomyelitis of the sacral area. The patient is currently covered with cefepime and vancomycin. To continue for now while waiting for the local wound cultures to finalize. The patient will need a PICC line for outpatient IV antibiotic therapy. Discussed with the case picker. Continue supportive care. MMODL / IJN: [id number] /
[2018-06-24] MEDS: ALPRAZolam 0.25 MG TAB PO PRN (21:05)
[2018-06-24] MEDS: CEFEPIME 2 GM in SODIUM CHLORIDE 0.9% 100 ML IVPB SCH (21:18)
[2018-06-25] MEDS: MORPHINE SULFATE 4 MG/ML SYRINGE IVP PRN ×4 (02:33→21:12)
[2018-06-25] MEDS: VANCOMYCIN 2,000 MG in SODIUM CHLORIDE 0.9% 500 ML 500 ML IVPB SCH ×3 (05:06→22:33)
[2018-06-25] MEDS: HYDROcodone/APAP 5-325MG 1 EACH TAB PO PRN ×3 (05:09→19:36)
[2018-06-25] MEDS: CEFEPIME 2 GM in SODIUM CHLORIDE 0.9% 100 ML IVPB SCH ×2 (07:54→21:13)
[2018-06-25] MEDS: NICOTINE 14MG/24HR PATCH TRANSDERM SCH (07:55)
[2018-06-25] MEDS: ENOXAPARIN 40 MG/0.4 ML SYRINGE SQ SCH (07:55)
[2018-06-25] MEDS: LIDOCAINE 1%-EPI 1:100,000 20 ML VIAL SQ SCH (11:20)
[2018-06-25 12:35] LABS: Basophils % (A) 0 %; Eosinophils # (A) 0.4 k/uL (0-0.7); Eosinophils % (A) 5 %; HCT 37.5 % (39.0-53.0); HGB 12.3 gm/dL (13.0-17.5); Lymphocytes # (A) 1.4 k/uL (1.0-4.8); Lymphocytes % (A) 17 %; MCH 28.1 pg (25.0-35.0); MCHC 32.8 g/dL (31.0-37.0); MCV 85.6 fL (80.0-100.0); Mean Platelet Volume 8.5; Monocytes # (A) 0.5 k/uL (0-1.0); Monocytes % (A) 5 %; Neutrophils % (A) 71 %; Platelet Count 273 k/uL (150-450); RBC 4.37 m/uL (4.30-5.90); WBC 8.5 k/uL (3.8-10.6)
[2018-06-25] MEDS ORDERED: LIDOCAINE 1% INJ 10MG/ML (20 ML MDV) SQ ONE (14:51)
--- NOTE | 2018-06-25 15:07 | P.PN ---
Subjective Progress Note Date: 06/25/18 CHIEF COMPLAINT: Pilonidal cyst HISTORY OF PRESENT ILLNESS: Patient is status post excision of pilonidal cyst. POD #1. Patient continues to complain of pain to coccyx area. Currently with wet to dry dressings. patient tolerating diet. Denies nausea or vomiting. PHYSICAL EXAM: VITAL SIGNS: Reviewed. GENERAL: Well-developed in no acute distress. HEENT: No sclera icterus. Extraocular movements grossly intact. Moist buccal mucosa. Head is atraumatic, normocephalic. ABDOMEN: Soft. Nondistended. Nontender. NEUROLOGIC: Alert and oriented. Cranial nerves II through XII grossly intact. SKIN: Gauze packing present to coccyx region with serosanguineous drainage present. Remains tender to touch. ASSESSMENT: 1. Pilonidal cyst with possible early osteomyelitis, status post excision of pilonidal cyst PLAN: Continue regular diet Wet-to-dry dressings until wound VAC has been placed per infectious disease recommendations Patient to receive PICC line today Antibiotics per infectious disease Patient is cleared for discharge from a surgical standpoint when antibiotic arrangements have been finalized Nurse practitioner note has been reviewed by physician. Signing provider agrees with the documented findings, assessment, and plan of care. Objective - Vital Signs Vital signs: Vital Signs Temp 97.9 F 06/25/18 13:10 Pulse 80 06/25/18 13:10 Resp 20 06/25/18 13:10 BP 144/89 06/25/18 13:10 Pulse Ox 93 L 06/25/18 06:08 Intake & Output 06/24/18 06/25/18 06/25/18 18:59 06:59 18:59 Intake Total 225 500 Output Total 5 Balance 220 500 Intake: IV 225 Oral 500 Output: Estimated Blood Loss 5 Other: Voiding Method Toilet Toilet # Voids 3 1 4 # Bowel Movements 0 1 - Labs CBC & Chem 7: 06/25/18 10:47 06/24/18 12:04 Labs: Abnormal Lab Results - Last 24 Hours (Table) 06/25/18 Range/Units 10:47 Hgb 12.3 L (13.0-17.5) gm/dL Hct 37.5 L (39.0-53.0) % Microbiology - Last 24 Hours (Table) 06/22/18 17:42 Blood Culture - Preliminary Blood No Growth after 48 hours 06/22/18 15:20 Gram Stain - Final Buttock Wound Culture - Final
--- NOTE | 2018-06-25 15:19 | IR ---
PICC LINE PLACEMENT: HISTORY: Infection requiring long-term antibiotic therapy PROCEDURE: Ultrasound and fluoroscopic guidance of PICC line placement. COMPLICATIONS: None ANESTHESIA: 1. 1% Lidocaine locally. FINDINGS/TECHNIQUE: The procedure was explained to the patient. The risks, complications, benefits and alternatives were discussed and any questions were answered. Informed consent was obtained. The patient was placed supine on the fluoroscopic table and prepped and draped in the usual sterile fash ion. Utilizing a 21 gauge needle and sonographic and fluoroscopic guidance, access in the left basi lic vein was achieved and there is placement of a 0.018 guidewire. The vein is patent. A 4-F sheath was placed over the guidewire. The guidewire and dilator were removed and a 4-F. PICC line was plac ed through the sheath with the tip at the level of the SVC. The sheath was removed, the catheter was flushed and sutured into position. The patient was stable throughout the procedure and remained sta ble upon discharge from the Department of Radiology. The vein puncture was patent under ultrasound. A wheeler scale image was obtained to document patency of the vein punctured. All elements of the maximal barrier technique were utilized. FLUOROSCOPY TIME: 0.2 minutes, one image submitted IMPRESSION: Successful PICC line placement under ultrasound and fluoroscopic guidance.
--- NOTE | 2018-06-25 16:19 | PN ---
PROGRESS NOTE DATE OF SERVICE: 06/25/2018. REASON FOR FOLLOWUP: Infected pilonidal cyst with underlying sacral osteomyelitis. INTERVAL HISTORY: The patient is currently afebrile. Patient complains of significant pain to the sacral wound area especially at the time of dressing changes. The patient denies having any chest pain or any cough. No abdominal pain. No diarrhea. PHYSICAL EXAMINATION: Blood pressure 144/89, pulse of 80, temperature is 97.9. General description is a middle-aged male lying in bed in no distress. Respiratory system: Unlabored breathing clear to auscultation anteriorly. Heart is S1, S2. Regular rate and rhythm. Sacral wound is deep with no significant slough to surrounding redness or any foul-smelling drainage. LABS: Hemoglobin is 12.8, white count 8.5. BUN of 12, creatinine 0.90. Superficial cultures done are usual respiratory angela. Blood culture negative. No deep cultures. DIAGNOSTIC IMPRESSION AND PLAN: Patient with infected pilonidal cyst status post extensive debridement with evidence of underlying sacral osteomyelitis. Cultures superficial were usual skin angela and deep cultures not done. The patient is on cefepime, vanco to continue switching it to Rocephin 2 g daily to get a PICC line. Local wound care to transition to the wound VAC. Continue supportive care. MMODL / IJN: [id number] /
[2018-06-25] MEDS: ALPRAZolam 0.25 MG TAB PO PRN ×2 (16:59→21:11)
--- NOTE | 2018-06-25 20:41 | PN ---
PROGRESS NOTE DATE OF SERVICE: 06/25/2018 This 38-year-old gentleman admitted with a pilonidal cyst underwent excision of pilonidal cyst with drainage of abscess by Dr. Smith. Patient is being followed by Infectious Disease also. No chest pain. No palpitations. Cultures are negative so far. On exam, alert and oriented x3. Pulse is 80, blood pressure 140/89, respiration 20, temperature 97.9, pulse ox 93% on room air. HEENT: Conjunctivae normal. NECK: No jugular venous distention. CARDIOVASCULAR SYSTEM: S1, S2 muffled. RESPIRATORY SYSTEM: Breath sounds diminished at the bases. No rhonchi. No crackles. ABDOMEN: Soft, non-tender. NERVOUS SYSTEM: No focal deficit. LABS: WBC 8.5, hemoglobin 12.3. ASSESSMENT: 1. Pilonidal cyst with cellulitis and abscess with possible early sepsis, present on admission, status post excision of pilonidal cyst with drainage of the abscess. 2. History of nicotine dependence. 3. Obesity with body mass index of 43.8. 4. Increased white count. 5. Increased potassium. RECOMMENDATIONS AND DISCUSSION: I recommend to continue current medications, continue with the monitoring, symptomatic treatment. Continue with antibiotics. Closely follow with Infectious Disease. Otherwise, DVT prophylaxis. Guarded prognosis because of multiple complex medical issues. Further recommendations to follow. MMODL / IJN: [id number] /
[2018-06-25] MEDS: LACTATED RINGERS 1,000 ML IV SCH (22:46)
[2018-06-26] MEDS ORDERED: VANCOMYCIN TROUGH DUE 1 EACH MISC MISCELLANE ONE (05:00)
[2018-06-26] MEDS: MORPHINE SULFATE 4 MG/ML SYRINGE IVP PRN ×4 (06:08→21:43)
[2018-06-26] MEDS: VANCOMYCIN 2,000 MG in SODIUM CHLORIDE 0.9% 500 ML 500 ML IVPB SCH (06:08)
[2018-06-26 06:09] LABS: Basophils % (A) 0 %; Eosinophils # (A) 0.3 k/uL (0-0.7); Eosinophils % (A) 4 %; HCT 38.6 % (39.0-53.0); Lymphocytes % (A) 15 %; MCHC 31.2 g/dL (31.0-37.0); MCV 86.5 fL (80.0-100.0); Mean Platelet Volume 6.6; Monocytes # (A) 0.4 k/uL (0-1.0); Monocytes % (A) 6 %; Neutrophils # (A) 5.1 k/uL (1.3-7.7); Neutrophils % (A) 73 %; Platelet Count 324 k/uL (150-450); RBC 4.46 m/uL (4.30-5.90); RDW 13.8 % (11.5-15.5); WBC 6.9 k/uL (3.8-10.6)
[2018-06-26 06:19] LABS: Anion Gap 7 mmol/L; Blood Urea Nitrogen 12 mg/dL (9-20); Calcium 8.8 mg/dL (8.4-10.2); Carbon Dioxide 24 mmol/L (22-30); Chloride 109 mmol/L (98-107); Glucose 105 mg/dL (74-99); Potassium 4.5 mmol/L (3.5-5.1); Sodium 140 mmol/L (137-145)
[2018-06-26] MEDS: LIDOCAINE 1%-EPI 1:100,000 20 ML VIAL SQ SCH (07:43)
[2018-06-26] MEDS: NICOTINE 14MG/24HR PATCH TRANSDERM SCH (07:44)
[2018-06-26] MEDS: CEFEPIME 2 GM in SODIUM CHLORIDE 0.9% 100 ML IVPB SCH (07:51)
[2018-06-26] MEDS: ENOXAPARIN 40 MG/0.4 ML SYRINGE SQ SCH (07:52)
[2018-06-26] MEDS: HYDROcodone/APAP 5-325MG 1 EACH TAB PO PRN ×3 (08:03→19:32)
--- NOTE | 2018-06-26 08:38 | P.PN ---
Subjective Progress Note Date: 06/26/18 Principal diagnosis: Pilonidal cyst Patient without new complaints. Pain he states is improving. Wound VAC was placed yesterday. White blood cell count is normal. He is afebrile. Objective - Vital Signs Vital signs: Vital Signs Temp 97.3 F L 06/26/18 05:13 Pulse 93 06/26/18 05:13 Resp 18 06/26/18 05:13 BP 136/76 06/26/18 05:13 Pulse Ox 95 06/26/18 05:13 Intake & Output 06/25/18 06/26/18 06/26/18 18:59 06:59 18:59 Other: Voiding Method Toilet # Voids 4 2 # Bowel Movements 1 - Exam Abdomen: Soft, nontender, nondistended Sacrum with wound VAC intact - Labs CBC & Chem 7: 06/26/18 05:46 06/26/18 05:46 Labs: Abnormal Lab Results - Last 24 Hours (Table) 06/25/18 06/26/18 06/26/18 Range/Units 10:47 05:46 05:46 Hgb 12.3 L 12.0 L (13.0-17.5) gm/dL Hct 37.5 L 38.6 L (39.0-53.0) % Chloride 109 H (98-107) mmol/L Glucose 105 H (74-99) mg/dL Microbiology - Last 24 Hours (Table) 06/22/18 17:42 Blood Culture - Preliminary Blood No Growth after 72 hours Assessment and Plan (1) Pilonidal cyst Narrative/Plan: Patient with infected bilateral cyst with suspected underlying osteomyelitis. Continue IV antibiotics. Continue wound VAC therapy. Anticipate discharge once cleared by infectious disease. Current Visit: Yes Status: Acute Code(s): L05.91 - PILONIDAL CYST WITHOUT ABSCESS SNOMED Code(s): 71875767
[2018-06-26] MEDS ORDERED: KETOROLAC 30 MG/ML 1 ML VIAL IVP PRN (12:01)
--- NOTE | 2018-06-26 17:54 | PN ---
PROGRESS NOTE DATE OF SERVICE: 06/26/2018. REASON FOR FOLLOWUP: Infected pilonidal cyst with underlying sacral osteomyelitis. INTERVAL HISTORY: The patient is currently afebrile. Patient is breathing comfortably. The patient did have a wound VAC applied that the patient has been tolerating so far. Unfortunately, the patient has been moving up and around in his bed and is almost pulled out his PICC line which was just inserted yesterday. PHYSICAL EXAMINATION: Blood pressure 135/82 with a pulse of 78, temperature 96.1. He is 97% on room air. General description is a middle-aged male lying in bed in no distress. Respiratory system: Unlabored breathing. Clear to auscultation anteriorly. Heart S1, S2. Regular rate and rhythm. ABDOMEN: Soft, no tenderness. Extremities are no edema of the feet. Sacral wound is currently dressed up with a wound VAC. LABS: Hemoglobin is 12, white count 6.9, BUN of 12, creatinine 1.01. Wound cultures did not show any resistant bacteria. DIAGNOSTIC IMPRESSION AND PLAN: Patient with infected pilonidal cyst with underlying sacral osteomyelitis. Culture has been negative for any resistant pathogen. Antibiotic will be adjusted to Rocephin 2 g daily for a 6 week course. Local care to continue with wound VAC. PICC line will be reinserted on Thursday as the current one is mcc out that should not be pushed back up, rather removed. This was discussed with the nurse taking care of the patient. MMODL / IJN: [id number] /
[2018-06-26] MEDS ORDERED: cefTRIAXone 2 GM VIAL IM SCH (18:00)
--- NOTE | 2018-06-26 19:11 | PN ---
PROGRESS NOTE DATE OF SERVICE: 06/26/2018 This 38-year-old gentleman was admitted with pilonidal cyst status post surgery. The patient had wound VAC application also by Surgery. No chest pain. No palpitations. No fever. EXAM: Alert and oriented times three. Pulse 78, blood pressure 135/80, respirations 16, temperature 98.1, pulse ox 97% on room air. HEENT: Conjunctivae normal. NECK: No jugular venous distention. CARDIOVASCULAR: S1, S2 muffled. RESPIRATIONS: Breath sounds diminished in the bases. A few rhonchi. No crackles. ABDOMEN is soft, nontender. LEGS: No edema. No swelling. CENTRAL NERVOUS SYSTEM: No focal deficits. BACK: Status post surgery. LABS: WBC 6.2, hemoglobin is 12, sodium 140, potassium 4.2. ASSESSMENT: 1. Pilonidal cyst with cellulitis with abscess with possible early sepsis, present on admission, status post excision of the pilonidal cyst with drainage of the abscess. 2. History of nicotine dependence. 3. History of obesity with body mass index 43.8. 4. Increased WBC. 5. Increased potassium. RECOMMENDATIONS AND DISCUSSION: Recommend to continue current medications, continue with monitoring, symptomatic treatment. Otherwise at this time, I recommend continued the antibiotics. The cultures are negative so far. Continue the pain medications. Further recommendations to follow. MMODL / IJN: [id number] /
[2018-06-26] MEDS ORDERED: VANCOMYCIN 2,000 MG in SODIUM CHLORIDE 0.9% 500 ML 500 ML IVPB SCH (21:00)
[2018-06-26] MEDS: ALPRAZolam 0.25 MG TAB PO PRN (21:43)
[2018-06-26] MEDS: LACTATED RINGERS 1,000 ML IV SCH (21:47)
[2018-06-27] MEDS: HYDROcodone/APAP 5-325MG 1 EACH TAB PO PRN ×3 (01:31→23:40)
[2018-06-27] MEDS: MORPHINE SULFATE 4 MG/ML SYRINGE IVP PRN ×6 (01:32→21:16)
--- NOTE | 2018-06-27 08:36 | P.PN ---
Subjective Progress Note Date: 06/27/18 Principal diagnosis: Pilonidal cyst Patient still complaining of mild pain. Wound VAC is in place. His PICC line apparently fell out accidentally yesterday. Peripheral IV was obtained. Objective - Vital Signs Vital signs: Vital Signs Temp 96.9 F L 06/27/18 05:23 Pulse 77 06/27/18 05:23 Resp 18 06/27/18 05:23 BP 130/68 06/27/18 05:23 Pulse Ox 96 06/27/18 05:23 Intake & Output 06/26/18 06/27/18 06/27/18 18:59 06:59 18:59 Intake Total 1200 Output Total 500 Balance 1200 -500 Intake: Oral 1200 Output: Urine 500 Other: # Voids 3 1 - Exam Abdomen: Soft, nontender, nondistended Sacral wound VAC in place - Labs CBC & Chem 7: 06/26/18 05:46 06/26/18 05:46 Labs: Microbiology - Last 24 Hours (Table) 06/22/18 17:42 Blood Culture - Preliminary Blood No Growth after 96 hours Assessment and Plan (1) Pilonidal cyst Narrative/Plan: Reconsult radiology for PICC line. Continue antibiotics. Discharge planning ongoing, hopefully discharge her later this week. Current Visit: Yes Status: Acute Code(s): L05.91 - PILONIDAL CYST WITHOUT ABSCESS SNOMED Code(s): 57661603
[2018-06-27] MEDS: NICOTINE 14MG/24HR PATCH TRANSDERM SCH (08:56)
[2018-06-27] MEDS: LIDOCAINE 1%-EPI 1:100,000 20 ML VIAL SQ SCH (09:00)
[2018-06-27] MEDS: ENOXAPARIN 40 MG/0.4 ML SYRINGE SQ SCH (09:04)
[2018-06-27 09:41] LABS: Basophils % (A) 0 %; Eosinophils # (A) 0.2 k/uL (0-0.7); Eosinophils % (A) 4 %; HCT 37.4 % (39.0-53.0); HGB 11.9 gm/dL (13.0-17.5); Lymphocytes # (A) 1.2 k/uL (1.0-4.8); Lymphocytes % (A) 19 %; MCH 26.7 pg (25.0-35.0); MCHC 31.7 g/dL (31.0-37.0); MCV 84.3 fL (80.0-100.0); Mean Platelet Volume 6.9; Monocytes # (A) 0.3 k/uL (0-1.0); Monocytes % (A) 5 %; Neutrophils # (A) 4.3 k/uL (1.3-7.7); Neutrophils % (A) 68 %; Platelet Count 349 k/uL (150-450); RBC 4.44 m/uL (4.30-5.90); RDW 13.9 % (11.5-15.5); WBC 6.3 k/uL (3.8-10.6)
--- NOTE | 2018-06-27 14:46 | PN ---
PROGRESS NOTE DATE OF SERVICE: 06/27/2018 This 38-year-old gentleman who was admitted with pilonidal cyst with cellulitis, abscess, incision and drainage. Wound VAC was applied. The cultures are negative. The patient on IV antibiotics. The patient is slated for PICC line insertion tomorrow, on IV antibiotics. No chest pain. No palpitations. No fever. EXAM: Alert and oriented times three. Pulse 74. Blood pressure 129/80, respirations 16, temperature 98.2, pulse ox 98% on room air. HEENT: Conjunctivae normal. Neck is no jugular venous distention. CARDIOVASCULAR: S1, S2 muffled. RESPIRATIONS: Breath sounds diminished in the bases. No rhonchi. No crackles. ABDOMEN: Soft, nontender. No mass palpable. LEGS: No edema. No swelling. CENTRAL NERVOUS SYSTEM: No focal deficits. Examination of the back, the patient has wound VAC applied. Nervous system: No focal deficits. LABS: WBC 6.2, hemoglobin 11.9. ASSESSMENT: 1. Pilonidal cyst with cellulitis and abscess with possible early sepsis present on admission, status post excision of the pilonidal cyst with drainage of the abscess. 2. History of nicotine dependence. 3. Obesity with body mass of 43.8. 4. Increased WBC. 5. Increased potassium, improved. RECOMMENDATIONS AND DISCUSSION: Recommend to continue current medications, management and symptomatic treatment. Otherwise, at this time, we will continue the antibiotics. PICC line. Closely follow with Infectious Disease and surgery. Further recommendations to follow. MMODL / IJN: [id number] /
[2018-06-27] MEDS: ALPRAZolam 0.25 MG TAB PO PRN (21:16)
--- NOTE | 2018-06-27 22:10 | PN ---
PROGRESS NOTE DATE OF SERVICE: 06/27/2018. REASON FOR FOLLOWUP: Infected pilonidal cyst with sacral osteomyelitis. INTERVAL HISTORY: The patient is currently afebrile, has been breathing comfortably. Has been tolerating his wound VAC. No chest pain. No shortness of breath. No cough. No abdominal pain. No diarrhea. PHYSICAL EXAMINATION: Blood pressure 129/80 with a pulse of 74, temperature 98.2. He is 98% on room air. General description is a middle-aged male lying in bed in no distress. Respiratory system: Unlabored breathing. Clear to auscultation anteriorly. Heart is S1, S2. Regular rate and rhythm. LABS: White count 6.3. Blood culture negative. Local culture has been usual respiratory angela. DIAGNOSTIC IMPRESSION AND PLAN: Patient with infected pilonidal cyst with underlying osteomyelitis on the sacral area. Culture negative for any resistant pathogen, currently on Rocephin 2 g daily to continue for a total of 6 weeks with weekly monitoring of CBC BMP and sed rate. Local wound care with wound VAC wound. Once outpatient IV antibiotic and wound VAC is arranged, he will be able to go home from ID standpoint. MMODL / IJN: [id number] /
[2018-06-27] MEDS: LACTATED RINGERS 1,000 ML IV SCH (22:19)
[2018-06-27 22:58] VITALS: RESP 18
[2018-06-28] MEDS: MORPHINE SULFATE 4 MG/ML SYRINGE IVP PRN ×2 (03:33→07:12)
[2018-06-28] MEDS: HYDROcodone/APAP 5-325MG 1 EACH TAB PO PRN ×3 (05:18→15:27)
[2018-06-28 05:33] VITALS: BP 115/68; PULSE 54; TEMP 97.4
[2018-06-28] MEDS: NICOTINE 14MG/24HR PATCH TRANSDERM SCH (06:56)
[2018-06-28] MEDS: LIDOCAINE 1%-EPI 1:100,000 20 ML VIAL SQ SCH (06:57)
[2018-06-28] MEDS: ENOXAPARIN 40 MG/0.4 ML SYRINGE SQ SCH ×2 (07:02→08:28)
[2018-06-28 08:00] LABS: Basophils % (A) 1 %; Eosinophils # (A) 0.3 k/uL (0-0.7); Eosinophils % (A) 5 %; HCT 40.8 % (39.0-53.0); Lymphocytes # (A) 1.4 k/uL (1.0-4.8); Lymphocytes % (A) 22 %; MCH 26.8 pg (25.0-35.0); MCHC 31.8 g/dL (31.0-37.0); MCV 84.2 fL (80.0-100.0); Mean Platelet Volume 6.5; Monocytes # (A) 0.3 k/uL (0-1.0); Monocytes % (A) 5 %; Neutrophils # (A) 4.2 k/uL (1.3-7.7); Neutrophils % (A) 67 %; Platelet Count 338 k/uL (150-450); RBC 4.85 m/uL (4.30-5.90); RDW 13.9 % (11.5-15.5); WBC 6.3 k/uL (3.8-10.6)
[2018-06-28 08:10] LABS: Anion Gap 6 mmol/L; Blood Urea Nitrogen 15 mg/dL (9-20); Calcium 8.8 mg/dL (8.4-10.2); Carbon Dioxide 27 mmol/L (22-30); Chloride 108 mmol/L (98-107); Glucose 89 mg/dL (74-99); Potassium 4.5 mmol/L (3.5-5.1); Sodium 141 mmol/L (137-145)
[2018-06-28 08:31] LABS: C Reactive Protein 55.4 mg/L (<10.0)
[2018-06-28] MEDS ORDERED: LIDOCAINE 1% INJ 10MG/ML (20 ML MDV) ONE (09:14)
[2018-06-28] MEDS: LIDOCAINE 1% INJ 10MG/ML (20 ML MDV) SQ ONE ×2 (09:31→09:42)
[2018-06-28 09:34] LABS: Erythrocyte Sedimentation Rate 82 mm/hr (0-15)
[2018-06-28] MEDS ORDERED: MORPHINE SULFATE 2 MG/ML SYRINGE IVP PRN (10:53)
--- NOTE | 2018-06-28 11:27 | P.DS ---
Providers Date of admission: 06/23/18 14:54 Expected date of discharge: 06/28/18 Attending physician: Raf Smith Consults: 06/22/18 09:40 Consult Physician Routine Consulting Provider: Liz Pemberton Consult Reason/Comments: pilonidal cyst, possible osteo Do you want consulting provider notified?: Yes 06/22/18 14:48 Consult Physician Routine Consulting Provider: Bibi Kemp Consult Reason/Comments: medical management, patient reports sleep apnea Do you want consulting provider notified?: Yes 06/24/18 10:54 Consult Physician Routine Consulting Provider: Liz Pemberton Consult Reason/Comments: Wound VAC, pilonidal cyst Do you want consulting provider notified?: Yes Primary care physician: Fabio Yusuf [place] [facility] Course: 38-year-old male who transferred to [facility] from [facility] secondary to pilonidal cyst. Patient reports he had surgery scheduled about a month ago to have the cyst removed but had an emergency with his daughter and did not go to his surgical appointment. Patient has not followed up since that time. Patient's pain has continued to increase and he presented to emergency room for further evaluation. Patient reports having fevers at home. Reports intermittent drainage from area. Patient underwent excision of pilonidal cyst with drainage of abscess on 06/24/2018. Infectious disease has been following patient during hospitalization. Patient had PICC line placed on 06/28/18. Infectious disease recommends Rocephin 2000mg daily for a total of 42 doses. Originally patient was going to come to [facility] daily for infusions but is now refusing and states he cannot come here. Patient is agreeable to pain $55 co-pay for home infusions. Wound vac offered to patient at discharge but patient refuses. Dr. Pemberton recommends to pack wound with Aquacel silver gauze and cover with dry dressing. Change every other day and PRN. He is stable for discharge home today. He is to follow up in the wound care center. Please see EMR for further hospital course details. Discharge Diagnosis: 1. Pilonidal cyst with early osteomyelitis, status post excision of pilonidal cyst Nurse practitioner note has been reviewed by physician. Signing provider agrees with the documented findings, assessment, and plan of care. Patient Condition at Discharge: Stable Plan - Discharge Summary New Discharge Prescriptions: New cefTRIAXone [Rocephin] 2,000 mg IVP Q24HR #42 vial Discharge Medication List cefTRIAXone [Rocephin] 2,000 mg IVP Q24HR #42 vial 06/28/18 [Rx] Follow up Appointment(s)/Referral(s): Fabio Yusuf DO [Primary Care Provider] - 1 Week [facility], [NON-STAFF] - [facility], [REFERRING] - (Will deliver 06/28/18 between 6:00pm- 8:00pm) Liz Pemberton MD [STAFF PHYSICIAN] - 1 Week Raf Smith MD [STAFF PHYSICIAN] - 1 Week Ambulatory/Diagnostic Orders: Basic Metabolic Panel [LAB.AMB] Location: None Selected C Reactive Protein [LAB.AMB] Location: None Selected Complete Blood Count w/diff [LAB.AMB] Location: None Selected Erythrocyte Sedimentation Rate [LAB.AMB] Location: None Selected Patient Instructions/Handouts: Pilonidal Cyst (GEN) Activity/Diet/Wound Care/Special Instructions: Pack wound with aquacel silver gauze, cover with dry dressing. Change every other day and if soiled. Follow up in the wound care center with Dr. Pemberton in one week, call [phone] to make an appointment Discharge/Stand Alone Forms: Work/School Release Discharge Disposition: HOME WITH HOME HEALTH SERVICES
--- NOTE | 2018-06-28 13:15 | P.PN ---
Subjective This is a pleasant 58 years old male who presents with possible coccygeal osteomyelitis secondary to infected pilonidal abscess. Patient has been e valuated by infectious disease, he was treated with vancomycin and ceftriaxone. Culture has been negative so far. Discussed the case with our infectious disease team, the plan to continue with ceftriaxone as an outpatient for several weeks. Patient has PICC line replaced today. Wound VAC on the place however not sure this will be covered by insurance then he will have to follow-up with frequent dressing. Patient also does not have medical insurance. incident manager is helping with his coverage for his antibiotic. Also he will be discharged with home care, at least one times and patient will follow up with he will need more. I have discussion with the patient and the family/mother at bedside, patient agrees for appointments with his PCP and infectious disease and he was said he will make his on appointment with the surgical team. He is aware for the need for follow-up and we will contact his PCP for his co-pay and they are okay with that(patient and family) Patient also was counseled about pain management, risks including but not limited to organ dysfunction, cardiopulmonary arrest and or are explained to the patient and he verbalized understanding and acceptance. He is aware that he will be discharge on oral pain medicine. Treatment gauze has been discussed with the patient as well. Patient is aware of the risks and is willing to accept them. Objective - Vital Signs Vital signs: Vital Signs Temp 97.4 F L 06/28/18 05:00 Pulse 54 L 06/28/18 05:00 Resp 18 06/28/18 05:00 BP 115/68 06/28/18 05:00 Pulse Ox 95 06/28/18 05:00 Intake & Output 06/27/18 06/28/18 06/28/18 18:59 06:59 18:59 Intake Total 400 Output Total 700 Balance -300 Intake: Oral 400 Output: Urine 700 Other: Voiding Method Toilet Urinal # Voids 3 2 - Exam GENERAL: The patient is alert and oriented x3, not in any acute distress. Well developed, well nourished. HEENT: Pupils are round and equally reacting to light. EOMI. No scleral icterus. No conjunctival pallor. Normocephalic, atraumatic. No pharyngeal erythema. No thyromegaly. CARDIOVASCULAR: S1 and S2 present. No murmurs, rubs, or gallops. PULMONARY: Chest is clear to auscultation, no wheezing or crackles. ABDOMEN: Soft, nontender, nondistended, normoactive bowel sounds. No palpable organomegaly. -MUSCULOSKELETAL: No joint swelling or deformity. Wound VAC with dressing in the coccygeal area. This of the examination is deferred to the primary surgical team EXTREMITIES: No cyanosis, clubbing, or pedal edema. NEUROLOGICAL: Gross neurological examination did not reveal any focal deficits. SKIN: No rashes. - Labs CBC & Chem 7: 06/28/18 07:40 06/28/18 07:40 Labs: Abnormal Lab Results - Last 24 Hours (Table) 06/28/18 06/28/18 Range/Units 07:40 07:40 ESR 82 H (0-15) mm/hr Chloride 108 H (98-107) mmol/L C-Reactive Protein 55.4 H (<10.0) mg/L Microbiology - Last 24 Hours (Table) 06/22/18 17:42 Blood Culture - Preliminary Blood No Growth after 120 hours Assessment and Plan Assessment: Osteomyelitis of the sacral area Follow needle sinus, status post surgical excision of the pilonidal cyst Pain of infection side Nicotine dependence Obesity with body mass index of 43.8 Plan: This is a pleasant 58 years old male who presents with a still myelitis of the sacral area. Continue with antibiotics as per infectious disease recommendation. Omentum patient follow up closely to monitor his CBC and BMP. Patient was instructed to follow up with his PCP and infectious disease in 1 week and he agrees to make appointments for him and he agrees with these appointments family also agreeable at bedside. Pain management as per primary team. Patient is medically stable for discharge from our perspective however he needs follow-up as an outpatient. Patient will be discharged with home care as per staff. Thank you for consulting us, please feel free to contact us for any further question or clarification
--- NOTE | 2018-06-28 13:17 | IR ---
PICC LINE PLACEMENT: HISTORY: Infection requiring long-term antibiotic therapy PROCEDURE: Ultrasound and fluoroscopic guidance of PICC line placement. COMPLICATIONS: None ANESTHESIA: 1. 1% Lidocaine locally. FINDINGS/TECHNIQUE: The procedure was explained to the patient. The risks, complications, benefits and alternatives were discussed and any questions were answered. Informed consent was obtained. The patient was placed supine on the fluoroscopic table and prepped and draped in the usual sterile fash ion. Utilizing a 21 gauge needle and sonographic and fluoroscopic guidance, access in the right bra chial vein was achieved and there is placement of a 0.018 guidewire. The vein is patent. A 4-F wagoner th was placed over the guidewire. The guidewire and dilator were removed and a 4-F. PICC line was pl aced through the sheath with the tip at the level of the SVC. The sheath was removed, the catheter w as flushed and sutured into position. The patient was stable throughout the procedure and remained s table upon discharge from the Department of Radiology. The vein puncture was patent under ultrasound. A wheeler scale image was obtained to document patency of the vein punctured. All elements of the maximal barrier technique were utilized. FLUOROSCOPY TIME: 0.5 minutes and one image submitted IMPRESSION: Successful PICC line placement under ultrasound and fluoroscopic guidance.
--- NOTE | 2018-06-28 17:26 | PN ---
PROGRESS NOTE DATE OF SERVICE: 06/28/2018 REASON FOR FOLLOWUP: Infected pilonidal cyst with underlying sacral osteomyelitis. INTERVAL HISTORY: The patient is currently afebrile, has been breathing comfortably. Denies having any chest pain or any cough. No worsening pain to the sacral wound area. Currently covered with a wound V.A.C. PHYSICAL EXAMINATION: Blood pressure is 115/68 with a pulse of 54, temperature 97.4. He is 95% on room air. General description is a middle-aged male lying in bed in no distress. RESPIRATORY SYSTEM: Unlabored breathing. Clear to auscultation anteriorly. HEART: S1, S2. Regular rate and rhythm. ABDOMEN: Soft. No tenderness. Sacral wound currently covered with a wound V.A.C. LABS: Hemoglobin is 13, white count 6.3. Sedimentation rate is 84, CRP 55.4. DIAGNOSTIC IMPRESSION AND PLAN: Patient with infected pilonidal cyst with underlying sacral osteomyelitis. Culture was usual skin angela. Patient's antibiotic has been adjusted to Rocephin 2 grams daily to continue for 6 weeks with weekly monitoring of CBC, BMP and sed rate. We did recommend wound V.A.C. for the local wound care. However, the patient has no insurance and per porter sample case it could not be arranged unless the patient pays up front, which the patient refused to do. The local care will be switched over to Aquacel Silver packing of the wound and close outpatient followup. CHANTAL / JUN: [id number] /
== END 2018-06-28 15:29 | disposition home health service (06) | DRG 854 ==
LOC: EC 18:16 → 4MS4W 20:26 → OBSVTOIN 06-23 14:54
PROVIDERS: ADMIT Surgery; ATTEND Surgery
PROC: 0JB90ZZ Excision of Buttock Subcutaneous Tissue and Fascia, Open Approach (ICD-10-PCS; principal; 2018-06-24 09:50)
PROC: 02HV33Z Insertion of Infusion Device into Superior Vena Cava, Percutaneous Approach (ICD-10-PCS; 2018-06-25)
PROC: 02HV33Z Insertion of Infusion Device into Superior Vena Cava, Percutaneous Approach (ICD-10-PCS; 2018-06-28)
DX: A41.9 Sepsis, unspecified organism (principal); L05.01 Pilonidal cyst with abscess; L03.319 Cellulitis of trunk, unspecified; M46.28 Osteomyelitis of vertebra, sacral and sacrococcygeal region; Z68.41 Body mass index [BMI] 40.0-44.9, adult; E87.5 Hyperkalemia; E66.9 Obesity, unspecified; F17.200 Nicotine dependence, unspecified, uncomplicated; G47.30 Sleep apnea, unspecified; L29.9 Pruritus, unspecified; Z88.0 Allergy status to penicillin; Z88.5 Allergy status to narcotic agent
CPT/HCPCS: 36410; 36573; 72192; 76937; 80048; 80202; 83605; 85025; 85652; 86140; 87040; 87070; 87205; 88304; 96365; 96375; 99284

== ENCOUNTER 2018-07-01 19:05 | Inpatient (IN) | payer OTHER ==
[2018-07-01] MEDS ORDERED: MORPHINE SULFATE 4 MG/ML SYRINGE IVP STA (20:20)
--- NOTE | 2018-07-01 20:26 | ED ---
Recheck HPI - General Source: patient, RN notes reviewed Mode of arrival: ambulatory Limitations: no limitations <Ramirez Roberts - Last Filed: 07/01/18 22:45> <Js Narayanan - Last Filed: 07/01/18 23:33> - General Chief Complaint: Recheck/Abnormal Lab/Rx Stated Complaint: Incision infection Time Seen by Provider: 07/01/18 19:40 - History of Present Illness Initial Comments: 38-year-old male presents emergency Department chief complaint of drainage, increased pain from his incision site. Patient states that he had a pilonidal cyst with abscess that was opened and drained [address] Smith. Patient is currently seeing Dr. Pedroza for infectious disease early on IV antibiotics through his PICC line. Patient states he had packing states that it fell out he's had increasing purulent drainage and was advised, emergency department by his physician secondary to the drainage. Patient reports no fever slight chills. Patient states it is more painful to touch that was. (Ramirez Roberts) - Related Data Previous Rx's Medication Instructions Recorded HYDROcodone/APAP 7.5-325MG [[place] 1 tab PO Q4H PRN 3 Days #18 tab 06/28/18 7.5-325] cefTRIAXone [Rocephin] 2,000 mg IVP Q24HR #42 vial 06/28/18 Allergies Allergy/AdvReac Type Severity Reaction Status Date / Time hydromorphone [From Dilaudid] Allergy Rash/Hives Verified 07/01/18 20:12 meperidine [From Demerol] Allergy Itching Verified 07/01/18 20:12 Penicillins Allergy Anaphylaxis Verified 07/01/18 20:12 propoxyphene [From Darvon] Allergy Itching Verified 07/01/18 20:12 Review of Systems ROS Other: All systems not noted in ROS Statement are negative. <Ramirez Roberts - Last Filed: 07/01/18 22:45> ROS Other: All systems not noted in ROS Statement are negative. <Js Narayanan - Last Filed: 07/01/18 23:33> ROS Statement: Those systems with pertinent positive or pertinent negative responses have been documented in the HPI. Past Medical History Past Medical History: No Reported History Additional Past Medical History / Comment(s): Rectal Cyst. History of Any Multi-Drug Resistant Organisms: None Reported Past Surgical History: Ear Surgery Additional Past Surgical History / Comment(s): pylonidal cyst Past Psychological History: No Psychological Hx Reported Smoking Status: Current every day smoker Past Alcohol Use History: None Reported Past Drug Use History: None Reported <Ramirez Roberts - Last Filed: 07/01/18 22:45> General Exam Limitations: no limitations General appearance: alert, in no apparent distress Head exam: Present: atraumatic, normocephalic, normal inspection Respiratory exam: Present: normal lung sounds bilaterally. Absent: respiratory distress, wheezes, rales, rhonchi, stridor Cardiovascular Exam: Present: regular rate, normal rhythm, normal heart sounds. Absent: systolic murmur, diastolic murmur, rubs, gallop, clicks GI/Abdominal exam: Present: soft, normal bowel sounds. Absent: distended, tenderness, guarding, rebound, rigid exam: Absent: normal inspection (There is a large open wound approximately 8 cm in length with purulent drainage.) Skin exam: Present: warm, dry <Ramirez Roberts - Last Filed: 07/01/18 22:45> Course <Js Narayanan - Last Filed: 07/01/18 23:33> Vital Signs 07/01/18 19:14 Temperature 98.4 F Pulse Rate 90 Respiratory 18 Rate Blood Pressure 102/63 O2 Sat by Pulse 98 Oximetry - Reevaluation(s) Reevaluation #1: 07/01/18 23:32 PA supervision: I personally do a [id number] evaluation the patient did presen t with complaints of increased pain and drainage from his pilonidal cyst incision and drainage site. He was sent in by his infectious disease physician. I did discuss the case with Dr. Smith. Patient be admitted with infectious disease consultation. (Js Narayanan) Medical Decision Making - Lab Data Result diagrams: 07/01/18 20:44 07/01/18 20:44 <Ramirez Roberts - Last Filed: 07/01/18 22:45> - Lab Data Result diagrams: 07/01/18 20:44 07/01/18 20:44 <Js Narayanan - Last Filed: 07/01/18 23:33> - Medical Decision Making 38-year-old male presented for increased pain and drainage from his incision on his abscess. Patient has persistent abscess 6 cm x 2.5 cm. Case discussed with Dr. Chowdhury recommends inpatient medicine. Consult to him and Dr. Pedroza. (Ramirez Roberts) - Lab Data Lab Results 07/01/18 07/01/18 07/01/18 Range/Units 20:44 20:44 20:44 WBC 9.5 (3.8-10.6) k/uL RBC 4.88 (4.30-5.90) m/uL Hgb 13.3 (13.0-17.5) gm/dL Hct 40.8 (39.0-53.0) % MCV 83.6 (80.0-100.0) fL MCH 27.3 (25.0-35.0) pg MCHC 32.7 (31.0-37.0) g/dL RDW 14.3 (11.5-15.5) % Plt Count 434 (150-450) k/uL Neutrophils % 69 % Lymphocytes % 22 % Monocytes % 4 % Eosinophils % 3 % Basophils % 0 % Neutrophils # 6.5 (1.3-7.7) k/uL Lymphocytes # 2.1 (1.0-4.8) k/uL Monocytes # 0.4 (0-1.0) k/uL Eosinophils # 0.3 (0-0.7) k/uL Basophils # 0.0 (0-0.2) k/uL Sodium 141 (137-145) mmol/L Potassium 4.1 (3.5-5.1) mmol/L Chloride 106 (98-107) mmol/L Carbon Dioxide 27 (22-30) mmol/L Anion Gap 8 mmol/L BUN 15 (9-20) mg/dL Creatinine 0.93 (0.66-1.25) mg/dL Est GFR (CKD-EPI)AfAm >90 (>60 ml/min/1.73 sqM) Est GFR (CKD-EPI)NonAf >90 (>60 ml/min/1.73 sqM) Glucose 98 (74-99) mg/dL Plasma Lactic Acid Kelvin 1.7 (0.7-2.0) mmol/L Calcium 9.1 (8.4-10.2) mg/dL Total Bilirubin 0.3 (0.2-1.3) mg/dL AST 18 (17-59) U/L ALT 36 (21-72) U/L Alkaline Phosphatase 43 (38-126) U/L Total Protein 7.5 (6.3-8.2) g/dL Albumin 3.8 (3.5-5.0) g/dL Disposition <Ramirez Roberts - Last Filed: 07/01/18 22:45> <Js Narayanan - Last Filed: 07/01/18 23:33> Clinical Impression: Pilonidal abscess, Failure of outpatient treatment Disposition: ADMITTED IP TO THIS [facility] Condition: Fair Referrals: Fabio Yusuf DO [Primary Care Provider] - 1-2 days
[2018-07-01 21:04] LABS: Basophils % (A) 0 %; Eosinophils # (A) 0.3 k/uL (0-0.7); Eosinophils % (A) 3 %; HCT 40.8 % (39.0-53.0); HGB 13.3 gm/dL (13.0-17.5); Lymphocytes # (A) 2.1 k/uL (1.0-4.8); Lymphocytes % (A) 22 %; MCH 27.3 pg (25.0-35.0); MCHC 32.7 g/dL (31.0-37.0); MCV 83.6 fL (80.0-100.0); Monocytes # (A) 0.4 k/uL (0-1.0); Monocytes % (A) 4 %; Neutrophils # (A) 6.5 k/uL (1.3-7.7); Neutrophils % (A) 69 %; Platelet Count 434 k/uL (150-450); RBC 4.88 m/uL (4.30-5.90); RDW 14.3 % (11.5-15.5); WBC 9.5 k/uL (3.8-10.6)
[2018-07-01 21:09] LABS: ALT 36 U/L (21-72); AST 18 U/L (17-59); Albumin 3.8 g/dL (3.5-5.0); Alkaline Phosphatase 43 U/L (38-126); Anion Gap 8 mmol/L; Blood Urea Nitrogen 15 mg/dL (9-20); Calcium 9.1 mg/dL (8.4-10.2); Carbon Dioxide 27 mmol/L (22-30); Chloride 106 mmol/L (98-107); Glucose 98 mg/dL (74-99); Potassium 4.1 mmol/L (3.5-5.1); Sodium 141 mmol/L (137-145); Total Bilirubin 0.3 mg/dL (0.2-1.3); Total Protein 7.5 g/dL (6.3-8.2)
--- NOTE | 2018-07-01 21:56 | CT ---
EXAMINATION TYPE: CT pelvis w con DATE OF EXAM: 07/01/2018 COMPARISON: 06/22/2018 HISTORY: Sacrum abscess. CT DLP: 1702.1 mGycm Automated exposure control for dose reduction was used. CONTRAST: Performed with IV Contrast, patient injected with 100ml mL of Isovue 300. FINDINGS: There is 6 x 2.5 cm complex area posterior to the lower sacrum that has soft tissue density and air b ubbles consistent with an abscess. This extends to the skin surface. I see no focal bone destruction. There is mild subcutaneous linear density adjacent to the inflammatory mass. There is small 1 cm flu id collection. IMPRESSION: INFLAMMATORY MASS POSTERIOR TO THE LOWER SACRUM IN THE SUBCUTANEOUS TISSUES APPEARS SLIGHTLY SMALLER THAN LAST CT SCAN AND CONSISTENT WITH AN ABSCESS AND PHLEGMON. NO EVIDENCE OF OSTEOMYELITIS.
[2018-07-01] MEDS ORDERED: NALOXONE 0.4 MG/ML 1 ML VIAL IV PRN (22:46)
[2018-07-01] MEDS ORDERED: ONDANSETRON 4 MG/2 ML VIAL IVP PRN (22:46)
[2018-07-01] MEDS ORDERED: VANCOMYCIN IV PER PHARMACY 1 EACH MISC MISCELLANE PRN (22:51)
[2018-07-02] MEDS ORDERED: VANCOMYCIN 2,000 MG in SODIUM CHLORIDE 0.9% 500 ML 500 ML IVPB ONE ×2
[2018-07-02] MEDS: MORPHINE SULFATE 4 MG/ML SYRINGE IV PRN ×6 (00:54→21:47)
[2018-07-02 02:32] VITALS: BMI 43.3
[2018-07-02] MEDS ORDERED: diphenhydrAMINE 50 MG CAP PO STA (04:38)
[2018-07-02] MEDS ORDERED: methylPREDNISolone SOD SUCCI 125 MG/2 ML VIAL IV STA (04:39)
[2018-07-02] MEDS ORDERED: diphenhydrAMINE 50 MG/ML 1 ML VIAL IM STA (04:54)
--- NOTE | 2018-07-02 05:59 | P.HPIM ---
History of Present Illness H&P Date: 07/02/18 The patient is a 38 yo M with a PMH of sacral pilonidal cyst w/ subsequent abscess formation, suspected osteomyelitis, and recent drainage on 06/24/[address] Smith w/ discharge from [facility] on 06/28/18 with PICC line and course of ceftriaxone (2 gm qd x 6 weeks) presents to the ED due to worsening drainage and pain in the region. The patient reports that he was advised by his outpatient visiting nurse to seek medical attention if the drainage from the wound turns green or purulent or if he has increases in pain. He notes that since he had noticed all of the above, he decided to come to the ED. Patient reports that he continues to have severe pain in the sacral region though denied fever or chills. Further endorsed compliance with his Ceftriaxone infusions. Denied chest pain, SOB, abdominal pain, nausea, vomiting, dizziness, or diarrhea. The patient underwent an extensive evaluation in the ED w/ WBC count 9.5, lactic acid 1.7, creatinine 0.9, and a pelvic computed tomography scan showing an abscess posterior to the sacrum with no evidence of osteomyelitis. Patient was subsequently admitted to medicine service for general surgery and infectious disease consult with IV antibiotics. Of note, following admission, the patient had developed pruritus along with urticaria throughout his body following administration of Vancomycin and was given antihistamines and steroids. At time of interview, the patient's pruritus and urticaria had resolved completely. Review of Systems Pertinent positives and negatives as discussed in HPI, a complete review of systems was performed and all other systems are negative. Past Medical History Past Medical History: No Reported History Additional Past Medical History / Comment(s): Rectal Cyst. History of Any Multi-Drug Resistant Organisms: None Reported Past Surgical History: Ear Surgery Additional Past Surgical History / Comment(s): pylonidal cyst Past Psychological History: No Psychological Hx Reported Smoking Status: Current every day smoker Past Alcohol Use History: None Reported Past Drug Use History: None Reported Medications and Allergies Home Medications Medication Instructions Recorded Confirmed Type HYDROcodone/APAP 7.5-325MG [[place] 1 tab PO Q4H PRN 3 Days #18 tab 06/28/18 07/01/18 Rx 7.5-325] cefTRIAXone [Rocephin] 2,000 mg IVP Q24HR #42 vial 06/28/18 07/01/18 Rx Allergies Allergy/AdvReac Type Severity Reaction Status Date / Time hydromorphone [From Dilaudid] Allergy Rash/Hives Verified 07/01/18 20:12 meperidine [From Demerol] Allergy Itching Verified 07/01/18 20:12 Penicillins Allergy Anaphylaxis Verified 07/01/18 20:12 propoxyphene [From Darvon] Allergy Itching Verified 07/01/18 20:12 Physical Exam Vitals: Vital Signs Temp Pulse Pulse Resp BP BP Pulse Ox 07/02/18 01:03 98.3 F 78 16 151/70 97 07/01/18 23:50 86 18 118/64 100 07/01/18 19:14 98.4 F 90 18 102/63 98 Intake and Output 07/01/18 07/01/18 07/02/18 14:59 22:59 06:59 Other: Weight 137.076 kg General: non toxic, no distress, appears at stated age, obese Derm: 2 ulcers in the sacral region: 4-5 cm and 5-6 cms in length w/ underlying purulent drainage and surrounding erythema and tenderness Head: atraumatic, normocephalic, symmetric Eyes: EOMI, no lid lag, anicteric sclera, pupils equal round reactive to light ENT: Nose and ears atraumatic, no thrush, no pharyngeal erythema Neck: No thyromegaly, no cervical lymphadenopathy, trachea midline, supple Mouth: no lip lesion, mucus membranes moist Cardiovascular: S1S2 reg, no murmur, positive posterior tibial pulse bilateral, no edema, capillary refill less than 2 seconds Lungs: CTA bilateral, no rhonchi, no rales , no accessory muscle use Abdominal: soft, nontender to palpation, no guarding, no appreciable organomegaly, normal bowel sounds Ext: no gross muscle atrophy, muscle strength 5 out of 5 in all 4 extremities grossly, no contractures, Neuro: CN II-XI grossly intact, light touch intact all 4 extremities, finger to nose within normal limits, Psych: Alert, oriented, appropriate affect Results CBC & Chem 7: 07/01/18 20:44 07/01/18 20:44 Thrombosis Risk Factor Assmnt - Choose All That Apply Any of the Below Risk Factors Present?: Yes Each Factor Represents 1 point: Obesity (BMI >25) Other Risk Factors: No Thrombosis Risk Factor Assessment Total Risk Factor Score: 1 Thrombosis Risk Factor Assessment Level: Low Risk Assessment and Plan Plan: Sacral abscess, with previously suspected sacral osteomyelitis -Patient developed hives immediately after receiving vancomycin -Continue with ceftriaxone for now, pending ID evaluation -General surgery consult for possible drainage of abscess -Pain control with [place] Hives, possibly secondary to vancomycin -Hold vancomycin -Given Benadryl and single dose of Solu-Medrol DVT prophylaxis -Heparin The patient is admitted with an anticipated greater than 2 midnight stay for evaluation of sacral abscess. CODE STATUS:Full Code Discussed with: Patient Anticipated discharge date: 07/04/[address]: Home3 A total of 35 minutes was spent on the care of this complex patient more than 50% of the time was spent in counseling and care coordination.
[2018-07-02] MEDS: HYDROcodone/APAP 5-325MG 1 EACH TAB PO PRN ×4 (07:43→19:52)
[2018-07-02] MEDS ORDERED: NON-FORMULARY DRUG (Ceftriaxone 2,000 MG) IVP SCH (09:00)
[2018-07-02] MEDS ORDERED: VANCOMYCIN 2,000 MG in SODIUM CHLORIDE 0.9% 500 ML 500 ML IVPB SCH (09:00)
--- NOTE | 2018-07-02 11:35 | P.GSCN ---
<Nancy Tavera - Last Filed: 07/02/18 11:34> History of Present Illness Consult date: 07/02/18 Reason for Consult: abscess Requesting physician: Josy Brar History of present illness: CHIEF COMPLAINT: Pain HISTORY OF PRESENT ILLNESS: 38-year-old male who presented to the emergency room due to increased pain and drainage from coccyx. Patient had recent pilonidal cyst removal. Patient was discharged home with IV antibiotics. Patient was offered wound VAC upon discharge during previous hospitalization but refused. He reports increased pain and green drainage from the wound. PAST MEDICAL HISTORY: See list. PAST SURGICAL HISTORY: See list. SOCIAL HISTORY: No illicit drug use. REVIEW OF SYSTEMS: CONSTITUTIONAL: Denies fever or chills. HEENT: Denies blurred vision, vision changes, or eye pain. Denies hemoptysis CARDIOVASCULAR: Denies chest pain or pressure. RESPIRATORY: No shortness of breath. GASTROINTESTINAL: Denies abdominal pain. Denies nausea or vomiting. HEMATOLOGIC: Denies bleeding disorders. GENITOURINARY: Denies any blood in urine. SKIN: Reports wound to coccyx from recent cyst removal. Reports increased drainage from wound that was green in color. PHYSICAL EXAM: VITAL SIGNS: Reviewed. GENERAL: Well-developed in no acute distress. HEENT: No sclera icterus. Extraocular movements grossly intact. Moist buccal mucosa. Head is atraumatic, normocephalic. ABDOMEN: Soft. Nondistended. Nontender. NEUROLOGIC: Alert and oriented. Cranial nerves II through XII grossly intact. SKIN: Wound to coccyx with small amount of purulent drainage. Minimal s urrounding erythema. No foul odor. Tenderness present. IMAGING: CT pelvis: 6 x 2.5cm complex area posterior to the lower sacrum that has soft tissue density near bubbles consistent with abscess. Appears slightly smaller than last computed tomography scan. No evidence of osteomyelitis. ASSESSMENT: 1. Recent excision of pilondial cyst, pathology reveals squamous carcinoma PLAN: 1. No surgical intervention recommended at this time 2. Continue antibiotics 3. Wound care per Dr. Pemberton 4. Consult oncology Nurse practitioner note has been reviewed by physician. Signing provider agrees with the documented findings, assessment, and plan of care. Past Medical History Past Medical History: No Reported History Additional Past Medical History / Comment(s): Rectal Cyst. History of Any Multi-Drug Resistant Organisms: None Reported Past Surgical History: Ear Surgery Additional Past Surgical History / Comment(s): pylonidal cyst Past Psychological History: No Psychological Hx Reported Smoking Status: Current every day smoker Past Alcohol Use History: None Reported Past Drug Use History: None Reported Medications and Allergies Home Medications Medication Instructions Recorded Confirmed Type HYDROcodone/APAP 7.5-325MG [[place] 1 tab PO Q4H PRN 3 Days #18 tab 06/28/18 07/01/18 Rx 7.5-325] cefTRIAXone [Rocephin] 2,000 mg IVP Q24HR #42 vial 06/28/18 07/01/18 Rx Allergies Allergy/AdvReac Type Severity Reaction Status Date / Time hydromorphone [From Dilaudid] Allergy Rash/Hives Verified 07/01/18 20:12 meperidine [From Demerol] Allergy Itching Verified 07/01/18 20:12 Penicillins Allergy Anaphylaxis Verified 07/01/18 20:12 propoxyphene [From Darvon] Allergy Itching Verified 07/01/18 20:12 Surgical - Exam Vital Signs Temp Pulse Resp BP Pulse Ox 98.4 F 90 18 102/63 98 07/01/18 19:14 07/01/18 19:14 07/01/18 19:14 07/01/18 19:14 07/01/18 19:14 Results - Labs 07/01/18 20:44 07/01/18 20:44 Diabetes panel 07/01/18 Range/Units 20:44 Sodium 141 (137-145) mmol/L Potassium 4.1 (3.5-5.1) mmol/L Chloride 106 (98-107) mmol/L Carbon Dioxide 27 (22-30) mmol/L BUN 15 (9-20) mg/dL Creatinine 0.93 (0.66-1.25) mg/dL Glucose 98 (74-99) mg/dL Calcium 9.1 (8.4-10.2) mg/dL AST 18 (17-59) U/L ALT 36 (21-72) U/L Alkaline Phosphatase 43 (38-126) U/L Total Protein 7.5 (6.3-8.2) g/dL Albumin 3.8 (3.5-5.0) g/dL Calcium panel 07/01/18 Range/Units 20:44 Calcium 9.1 (8.4-10.2) mg/dL Albumin 3.8 (3.5-5.0) g/dL Pituitary panel 07/01/18 Range/Units 20:44 Sodium 141 (137-145) mmol/L Potassium 4.1 (3.5-5.1) mmol/L Chloride 106 (98-107) mmol/L Carbon Dioxide 27 (22-30) mmol/L BUN 15 (9-20) mg/dL Creatinine 0.93 (0.66-1.25) mg/dL Glucose 98 (74-99) mg/dL Calcium 9.1 (8.4-10.2) mg/dL Adrenal panel 07/01/18 Range/Units 20:44 Sodium 141 (137-145) mmol/L Potassium 4.1 (3.5-5.1) mmol/L Chloride 106 (98-107) mmol/L Carbon Dioxide 27 (22-30) mmol/L BUN 15 (9-20) mg/dL Creatinine 0.93 (0.66-1.25) mg/dL Glucose 98 (74-99) mg/dL Calcium 9.1 (8.4-10.2) mg/dL Total Bilirubin 0.3 (0.2-1.3) mg/dL AST 18 (17-59) U/L ALT 36 (21-72) U/L Alkaline Phosphatase 43 (38-126) U/L Total Protein 7.5 (6.3-8.2) g/dL Albumin 3.8 (3.5-5.0) g/dL <Raf Smith - Last Filed: 07/02/18 16:20> Surgical - Exam Vital Signs Temp Pulse Resp BP Pulse Ox 98.4 F 90 18 102/63 98 07/01/18 19:14 07/01/18 19:14 07/01/18 19:14 07/01/18 19:14 07/01/18 19:14 Results - Labs 07/01/18 20:44 07/01/18 20:44 Diabetes panel 07/01/18 Range/Units 20:44 Sodium 141 (137-145) mmol/L Potassium 4.1 (3.5-5.1) mmol/L Chloride 106 (98-107) mmol/L Carbon Dioxide 27 (22-30) mmol/L BUN 15 (9-20) mg/dL Creatinine 0.93 (0.66-1.25) mg/dL Glucose 98 (74-99) mg/dL Calcium 9.1 (8.4-10.2) mg/dL AST 18 (17-59) U/L ALT 36 (21-72) U/L Alkaline Phosphatase 43 (38-126) U/L Total Protein 7.5 (6.3-8.2) g/dL Albumin 3.8 (3.5-5.0) g/dL Calcium panel 07/01/18 Range/Units 20:44 Calcium 9.1 (8.4-10.2) mg/dL Albumin 3.8 (3.5-5.0) g/dL Pituitary panel 07/01/18 Range/Units 20:44 Sodium 141 (137-145) mmol/L Potassium 4.1 (3.5-5.1) mmol/L Chloride 106 (98-107) mmol/L Carbon Dioxide 27 (22-30) mmol/L BUN 15 (9-20) mg/dL Creatinine 0.93 (0.66-1.25) mg/dL Glucose 98 (74-99) mg/dL Calcium 9.1 (8.4-10.2) mg/dL Adrenal panel 07/01/18 Range/Units 20:44 Sodium 141 (137-145) mmol/L Potassium 4.1 (3.5-5.1) mmol/L Chloride 106 (98-107) mmol/L Carbon Dioxide 27 (22-30) mmol/L BUN 15 (9-20) mg/dL Creatinine 0.93 (0.66-1.25) mg/dL Glucose 98 (74-99) mg/dL Calcium 9.1 (8.4-10.2) mg/dL Total Bilirubin 0.3 (0.2-1.3) mg/dL AST 18 (17-59) U/L ALT 36 (21-72) U/L Alkaline Phosphatase 43 (38-126) U/L Total Protein 7.5 (6.3-8.2) g/dL Albumin 3.8 (3.5-5.0) g/dL Assessment and Plan Plan: The paitient will under go reexcision of the pilonidal cyst/ squamous cell carcinoma once the induration and infection improves. /Osei will be covering myself next week.
--- NOTE | 2018-07-02 18:03 | CONS ---
CONSULTATION DATE OF SERVICE: 07/02/2018 REASON FOR CONSULTATION: Sacral wound and osteomyelitis. HISTORY OF PRESENT ILLNESS: The patient is a 38-year-old male who was recently admitted to this facility. The patient did have infected pilonidal cyst with evidence of sacral osteomyelitis. The patient had extensive debridement of the sacral wound with the wound extending all the way down to the sacral bone. The patient did have some superficial culture which was usual skin angela. No OR cultures were done. The patient subsequently did get a PICC line and was advised Rocephin 2 grams daily for a total of 6 weeks, which the patient is currently getting at home. The patient also has a wound V.A.C. for local wound care. However, unfortunately that cannot be continued in the outpatient setting, as the patient has no insurance and the wound V.A.C. therapy wanted a $3000 advance before they could ship it out. The patient was sent to the ER at [facility] yesterday by the home care nurse, who apparently noticed some greenish drainage from it and told him that this is not normal. The patient denies any worsening pain to the sacral wound area. The patient denies having any fever or any chills, denies having any chest pain or shortness of breath or cough. No abdominal pain or any diarrhea. The patient's current pain to the sacral wound is dull aching, 4 to 5 out of 10, and no radiation. REVIEW OF SYSTEMS: Positive points have been mentioned in the HPI. Rest of the systems are negative. PAST MEDICAL HISTORY: 1. Recurrent pilonidal cyst. 2. Sacral osteomyelitis. PAST SURGICAL HISTORY: Status post debridement of his pilonidal cyst area. SOCIAL HISTORY: Current everyday smoker. No drinking. No drug use. FAMILY HISTORY: No pertinent findings noticed. ALLERGIES: 1. PENICILLIN. 2. MEPERIDINE. 3. HYDROMORPHONE. CURRENT MEDICATIONS: 1. Zofran. 2. Narcan. 3. Rocephin 2 grams daily. 4. [place]. 5. Morphine sulfate. PHYSICAL EXAMINATION: Blood pressure 103/64 with a pulse of 73, temperature 97.8. He is 94% on room air. General description is a middle-aged male lying in bed in no distress. No tachypnea or accessory muscle of respiration use. HEENT examination shows no pallor or scleral icterus. Oral mucosa membrane is dry. No pharyngeal erythema or thrush. NECK: Trachea is central. No thyromegaly. LUNGS: Unlabored breathing. Clear to auscultation anteriorly. No wheeze or crackle. HEART: S1, S2. Regular rate and rhythm. ABDOMEN: Soft. No tenderness. No guarding or rigidity. EXTREMITIES: No edema of the feet. EXAMINATION OF SACRAL WOUND AREA: The wound base looks clean, with no significant slough tissue, no surrounding erythema or any foul-smelling drainage. Neurologically the patient is awake, alert, oriented x3. Mood and affect normal. LABS: Hemoglobin 13.3, white count 9.5 with a BUN of 15, creatinine 0.93. Electrolytes are normal. Liver enzymes are normal. Lactic acid 1.7. DIAGNOSTIC IMPRESSION AND PLAN: Patient with sacral osteomyelitis with a sacral wound after extensive surgery for his pilonidal cyst. Cultures were negative for any resistant gram-positive or gram- negative pathogen. The patient currently is being admitted to hospital per advice of his home care nurse because of greenish drainage. However, currently the patient is not running a fever; no elevated white count. The patient's wound looks clean with no significant slough tissue. PLAN: 1. Local wound care with Aquacel Silver packing of the wound. Hopefully a wound V.A.C. can be arranged in the outpatient setting. 2. Antibiotic in the form of Rocephin 2 grams piggyback daily. 3. In view of the biopsy coming back positive with squamous cell carcinoma, Oncology has been consulted. Will wait for their recommendation. Plan of care was discussed with the admitting physician. MMODL / IJN: [id number] /
--- NOTE | 2018-07-02 18:04 | P.CONS ---
History of Present Illness - Reason for Consult Consult date: 07/02/18 Squamous cell carcinoma of the skin - History of Present Illness The patient is a 38-year-old white male, with a known history of a pilonidal cyst with inflammation off and on for many years. The patient had [facility], with pain, redness and drainage and was found to have an abscess associated with that. He underwent drainage of the abscess and excision of the cyst and was subsequently discharged home on IV antibiotics (ceftriaxone). He came back to the ER, as he developed increasing pain over the past few days in the left buttock area, and around sacrum, as well as increased drainage. He had a computed tomography scan done which showed inflammatory mass posterior to the lower sacrum, slightly smaller than before. He was seen by surgery, and continued antibiotic treatment was recommended. The pathology on the pilonidal cyst excision came back positive for squamous cell carcinoma, in the fistulous tract related to the pilonidal cyst or abscess. Margins are positive. Consult was therefore placed for further evaluation and recommendations. The patient denied any prior history of cancer. He states however than some months ago he was told that he may have a nodule in his lung and [place]. He states that he is not been scheduled for any follow-up. Review of Systems Constitutional: Reports fatigue Eyes: denies blurred vision, denies pain Ears: deny: decreased hearing, ear discharge, earache, tinnitus Ears, nose, mouth and throat: Denies headache, Denies sore throat Cardiovascular: Denies chest pain, Denies shortness of breath Respiratory: Denies cough Gastrointestinal: Denies abdominal pain, Denies diarrhea, Denies nausea, Denies vomiting Genitourinary: Reports as per HPI Musculoskeletal: Reports as per HPI Integumentary: Reports as per HPI, Reports wounds Neurological: Denies numbness, Denies weakness Psychiatric: Denies anxiety, Denies depression Endocrine: Denies fatigue, Denies weight change Past Medical History Past Medical History: No Reported History Additional Past Medical History / Comment(s): Rectal Cyst. History of Any Multi-Drug Resistant Organisms: None Reported Past Surgical History: Ear Surgery Additional Past Surgical History / Comment(s): pylonidal cyst Past Psychological History: No Psychological Hx Reported Smoking Status: Current every day smoker Past Alcohol Use History: None Reported Past Drug Use History: None Reported Medications and Allergies Home Medications Medication Instructions Recorded Confirmed Type HYDROcodone/APAP 7.5-325MG [[place] 1 tab PO Q4H PRN 3 Days #18 tab 06/28/18 07/01/18 Rx 7.5-325] cefTRIAXone [Rocephin] 2,000 mg IVP Q24HR #42 vial 06/28/18 07/01/18 Rx Allergies Allergy/AdvReac Type Severity Reaction Status Date / Time hydromorphone [From Dilaudid] Allergy Rash/Hives Verified 07/01/18 20:12 meperidine [From Demerol] Allergy Itching Verified 07/01/18 20:12 Penicillins Allergy Anaphylaxis Verified 07/01/18 20:12 propoxyphene [From Darvon] Allergy Itching Verified 07/01/18 20:12 Physical Exam Vitals: Vital Signs Temp Pulse Pulse Resp BP BP Pulse Ox 07/02/18 15:46 16 07/02/18 14:37 97.8 F 73 16 103/64 94 L 07/02/18 07:00 98 F 68 16 111/68 98 07/02/18 01:03 98.3 F 78 16 151/70 97 07/01/18 23:50 86 18 118/64 100 07/01/18 19:14 98.4 F 90 18 102/63 98 Intake and Output 07/02/18 07/02/18 07/02/18 06:59 14:59 22:59 Other: Voiding Method Urinal Urinal - Constitutional General appearance: no acute distress - EENT Eyes: EOMI, PERRLA ENT: hearing grossly normal, normal oropharynx - Neck Neck: no lymphadenopathy - Respiratory Respiratory: bilateral: CTA - Cardiovascular Rhythm: regular Heart sounds: normal: S1, S2 - Gastrointestinal General gastrointestinal: normal bowel sounds, soft - Integumentary Prior incision site just inferior to sacral tip bandaged - Neurologic Neurologic: CNII-XII intact - Musculoskeletal Musculoskeletal: generalized weakness, strength equal bilaterally - Psychiatric Psychiatric: A&O x's 3, appropriate affect Results CBC & Chem 7: 07/01/18 20:44 07/01/18 20:44 Comments: Report of CT sacrum reviewed Pelvis/hip x-ray report reviewed Chest x-ray: report reviewed CT scan - pelvis: report reviewed Assessment and Plan (1) 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 The pathology and implications were discussed with the jacqueline ent and multiple family members. He was advised that the cancer most likely arose due to chronic inflammation. As margins are positive, the standard of care for this would be wider excision. If a wider excision was not possible due to technical reasons or not successful, then radiation could be an option. However definitive surgery would be the preferred standard of care. The patient has no evidence of metastatic disease on computed tomography scan of the pelvis, or physical exam. At this time there does not appear to be any role for medical oncology intervention. The case was discussed with the surgical service. At this time the patient needs to complete treatment for the abscess, before additional surgical intervention in that area. I therefore recommended that the patient be set up for outpatient follow-up with plan for additional excision, as an outpatient, with the surgical service The above recommendations also discussed in detail with the admitting service Current Visit: Yes Status: Acute Code(s): C44.529 - SQUAMOUS CELL CARCINOMA OF SKIN OF OTHER PART OF TRUNK SNOMED Code(s): 69716308 (2) Pilonidal abscess Narrative/Plan: Diagnostic and therapy the circumstances as described above. Continue treatment Per ID Current Visit: Yes Status: Acute Code(s): L05.01 - PILONIDAL CYST WITH ABSCESS SNOMED Code(s): 45556812 (3) Pulmonary nodule Narrative/Plan: The patient gives a history of a lung nodule that he was told was suspicious. He states that this was found by a physician and [place], but does not recall the name or the specialty. We have no records of the same. He does have a long-standing history of smoking. He does not have any significant symptoms, and chest x-ray done within the last 2 weeks was negative. I explained to the patient that subcentimeter lung nodules are overall nonspecific, but may need follow-up. Recommended to the admitting service and the patient be set up for outpatient follow-up with pulmonary for this patient Current Visit: Yes Status: Acute Code(s): R91.1 - SOLITARY PULMONARY NODULE SNOMED Code(s): 892447278
[2018-07-03] MEDS: HYDROcodone/APAP 5-325MG 1 EACH TAB PO PRN ×3 (00:06→12:21)
[2018-07-03 01:47] VITALS: RESP 16
[2018-07-03] MEDS: MORPHINE SULFATE 4 MG/ML SYRINGE IV PRN ×4 (03:39→15:52)
[2018-07-03 07:53] VITALS: BP 123/74; PULSE 68; TEMP 97.6
--- NOTE | 2018-07-03 13:50 | P.DS ---
Providers Date of admission: 07/01/18 23:32 Expected date of discharge: 07/03/18 Attending physician: Josy Brar MD Consults: 07/01/18 22:46 Consult Physician Stat Consulting Provider: Liz Pemberton Consult Reason/Comments: abscess Do you want consulting provider notified?: Yes, Notify in am 07/02/18 05:56 Consult Physician Urgent Consulting Provider: Raf Smith Consult Reason/Comments: Abscess Do you want consulting provider notified?: Yes 07/02/18 10:56 Consult Physician Routine Consulting Provider: Mariano Mejia Consult Reason/Comments: recent cyst removal, path positive for carcinoma Do you want consulting provider notified?: Yes Primary care physician: Fabio Yusuf - Discharge Diagnosis(es) (1) Pilonidal abscess Current Visit: Yes Status: Acute (2) Pulmonary nodule Current Visit: Yes Status: Acute (3) 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 Smith with drainage and excision of the cyst and was discharged home on IV antibiotics. Repeat CT showed inflammatory mass posterior to the local sacrum which was slightly smaller than before, the patient was again seen by Dr. Smith who recommended no ongoing surgery at this time. Previous biopsy of the pilonidal cyst results indicated squamous cell carcinoma secondary to recurrent inflammation. Dr. Mejia was consulted and recommended wide excision of the area as margins were apparently positive but without evidence of metastatic disease. Dr. Mejia figures if wide excision is not available due to technical reasons and radiation might be an option for the patient. In discussing the case with the consultants it was decided the patient will be discharged home with plans to follow-up with general surgery in a week and to continue IV antibiotics with wound care at home with his current [employer]. The patient was discharged home in stable condition told to follow-up with consultants in a week. This discharge process took approximately 35 minutes. Focused exam Skin : Prior incision site just inferior to the sacral tip bandaged with mild drainage noted. Patient Condition at Discharge: Good Plan - Discharge Summary New Discharge Prescriptions: Continue cefTRIAXone [Rocephin] 2,000 mg IVP Q24HR #42 vial HYDROcodone/APAP 7.5-325MG [[place] 7.5-325] 1 tab PO Q4H PRN 3 Days #18 tab PRN Reason: Pain Discharge Medication List HYDROcodone/APAP 7.5-325MG [[place] 7.5-325] 1 tab PO Q4H PRN 3 Days #18 tab 06/28/18 [Rx] cefTRIAXone [Rocephin] 2,000 mg IVP Q24HR #42 vial 06/28/18 [Rx] Follow up Appointment(s)/Referral(s): Iggy Villalta MD [STAFF PHYSICIAN] - 2 Weeks Mariano Mejia MD [STAFF PHYSICIAN] - 1 Week Fabio Yusuf DO [Primary Care Provider] - 1-2 days [facility], [NON-STAFF] - [facility], [REFERRING] - Liz Pemberton MD [STAFF PHYSICIAN] - 1 Week Raf Smith MD [STAFF PHYSICIAN] - 1 Week Patient Instructions/Handouts: Pilonidal Cyst (GEN) Activity/Diet/Wound Care/Special Instructions: Aquacel AG packing DAILY activity as tolerated regular diet as tolerated [facility] Right arm PICC line Discharge Disposition: HOME SELF-CARE
== END 2018-07-03 17:56 | disposition home health service (06) | DRG 603 ==
LOC: EC 19:05 → 4SSUR 23:32
PROVIDERS: ADMIT Internal Medicine; ATTEND Internal Medicine
DX: L05.01 Pilonidal cyst with abscess (principal); Z68.41 Body mass index [BMI] 40.0-44.9, adult; E66.9 Obesity, unspecified; C44.529 Squamous cell carcinoma of skin of other part of trunk; F17.200 Nicotine dependence, unspecified, uncomplicated; L50.9 Urticaria, unspecified; L50.0 Allergic urticaria; R91.1 Solitary pulmonary nodule; T36.8X5A Adverse effect of other systemic antibiotics, initial encounter; Z88.0 Allergy status to penicillin; Z88.5 Allergy status to narcotic agent
CPT/HCPCS: 36415; 72193; 80053; 83605; 85025; 87040; 96374; 99284

== ENCOUNTER 2018-07-08 15:36 | Emergency (ER) | payer OTHER ==
[2018-07-08 15:48] VITALS: RESP 18
--- NOTE | 2018-07-08 16:42 | ED ---
General Adult HPI - General Chief complaint: Extremity Injury, Upper Stated complaint: arm swelling Time Seen by Provider: 07/08/18 16:00 Source: patient Mode of arrival: ambulatory Limitations: no limitations - History of Present Illness Initial comments: Patient is a 38-year-old male presenting to the emergency department with swelling and pain on the medial aspect of the left elbow. Patient reports the pain started yesterday and is not present at rest but it is aggravated with movement. patient reports minimal muscle weakness. Patient states the pain and swelling is located in the area of the previous PICC location which was removed yesterday. Patient is currently treated for a pilonidal cyst and is ongoing daily infusion of ceftriaxone. Patient denies a history of gout. - Related Data Previous Rx's Medication Instructions Recorded HYDROcodone/APAP 7.5-325MG [[place] 1 tab PO Q4H PRN 3 Days #18 tab 06/28/18 7.5-325] cefTRIAXone [Rocephin] 2,000 mg IVP Q24HR #42 vial 06/28/18 Aspirin 81 mg PO DAILY 5 Days #5 chewable 07/08/18 Allergies Allergy/AdvReac Type Severity Reaction Status Date / Time hydromorphone [From Dilaudid] Allergy Rash/Hives Verified 07/08/18 16:14 meperidine [From Demerol] Allergy Itching Verified 07/08/18 16:14 Penicillins Allergy Anaphylaxis Verified 07/08/18 16:14 propoxyphene [From Darvon] Allergy Itching Verified 07/08/18 16:14 Review of Systems ROS Statement: Those systems with pertinent positive or pertinent negative responses have been documented in the HPI. ROS Other: All systems not noted in ROS Statement are negative. Past Medical History Past Medical History: No Reported History Additional Past Medical History / Comment(s): Rectal Cyst. PICC line on right arm History of Any Multi-Drug Resistant Organisms: None Reported Past Surgical History: Ear Surgery Additional Past Surgical History / Comment(s): pylonidal cyst Past Psychological History: No Psychological Hx Reported Smoking Status: Current every day smoker Past Alcohol Use History: None Reported Past Drug Use History: None Reported - Past Family History Mother Family Medical History: Diabetes Mellitus General Exam Limitations: no limitations Left Elbow exam: Present: full ROM, tenderness (Burning sensation), swelling, pain w/ pronation/supination Course Vital Signs 07/08/18 15:45 Temperature 98.4 F Pulse Rate 98 Respiratory 18 Rate Blood Pressure 122/72 O2 Sat by Pulse 97 Oximetry Medical Decision Making - Medical Decision Making There is 48-year-old male presenting to the emergency department with pain and swelling on the medial aspect of the elbow. Patient had a PICC line removed yesterday in the same location. Ultrasound venous Doppler was ordered and is suggestive of superficial venous thrombus in the basilic vein. Patient was advised to keep arm elevated and use cold or hot compress. Patient was also prescribed a 5 day course of 81 mg aspirin. Disposition Clinical Impression: Superficial venous thrombosis of left arm Disposition: HOME SELF-CARE Condition: Stable Instructions (If sedation given, give patient instructions): Superficial Thrombophlebitis (ED) Additional Instructions: Do not collect blood pressure from left arm. Follow up with primary care after 1-2 days. Return to the emergency department if symptoms worsen. Is patient prescribed a controlled substance at d/c from ED?: No Referrals: Fabio Yusuf DO [Primary Care Provider] - 1-2 days Time of Disposition: 18:04
--- NOTE | 2018-07-08 17:24 | US ---
EXAMINATION TYPE: US venous doppler duplex UE LT DATE OF EXAM: 07/08/2018 COMPARISON: NONE CLINICAL HISTORY: Pain. Picc line removed from left arm recently and put in right arm. SIDE PERFORMED: Left Left Arm: Negative for DVT Thrombus seen in the basilic from the elbow to the upper arm. There is no flow and vessel is non comp ressible in this area. There is venous flow in the jugular subclavian axillary and brachial vein. IMPRESSION: There is no evidence of deep venous thrombosis in the left arm. There is superficial vein thrombosis involving the basilic vein.
[2018-07-08 18:19] VITALS: BP 119/79; PULSE 72; TEMP 98.1
== END 2018-07-08 18:16 | disposition home or self-care (01) ==
LOC: EC 15:36
DX: I82.612 Acute embolism and thrombosis of superficial veins of left upper extremity (principal); F17.200 Nicotine dependence, unspecified, uncomplicated; Z95.9 Presence of cardiac and vascular implant and graft, unspecified; Z88.5 Allergy status to narcotic agent; Z88.0 Allergy status to penicillin
CPT/HCPCS: 99283

== ENCOUNTER 2018-07-22 07:43 | Day surgery (SDC) | payer OTHER ==
[2018-07-20 11:52] VITALS: BMI 42.5
[~2018-07-22 07:43] MED LIST: DEXAMETHASONE SOD PHOSPHATE 10 MG/ML 1 ML VIAL IV ONE; LACTATED RINGERS 1,000 ML IV SCH; LIDOCAINE 1% 20 ML VIAL (10MG/ML) FOR IV START INTRADERMA PRN; MIDAZOLAM (PF) 2 MG/2 ML VIAL IV PRN; ONDANSETRON 4 MG/2 ML VIAL IVP ONE; SCOPOLAMINE 1.5MG/72HR PATCH TRANSDERM ONE
[2018-07-22] MEDS ORDERED: HEPARIN SODIUM,PORCINE 5,000 UNIT/ML 1 ML VIAL SQ ONE (08:37)
--- NOTE | 2018-07-22 08:37 | P.GSHP ---
History of Present Illness H&P Date: 07/22/18 Chief Complaint: History of pilonidal cyst with squamous cell carcinoma This is a 38-year-old male with a chronic pilonidal cyst. Patient presents today for debridement. 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 Patient presents for excision of the fistula tract. Past Medical History Past Medical History: Cancer, Skin Disorder Additional Past Medical History / Comment(s): pilonidal Cyst. PICC line in right arm , sacral wound w/packing currently, squamous cell cancer from recent biopsy during pilonidal abscess surg. History of Any Multi-Drug Resistant Organisms: None Reported Past Surgical History: Ear Surgery Additional Past Surgical History / Comment(s): pilonidal cyst excision w /drainage of abscess 06-24-18 Past Anesthesia/Blood Transfusion Reactions: Previous Problems w/ Anesthesia Additional Past Anesthesia/Blood Transfusion Reaction / Comment(s): was told slow to wake up after recent surgery Smoking Status: Former smoker - Past Family History Mother Family Medical History: Diabetes Mellitus Medications and Allergies Home Medications Medication Instructions Recorded Confirmed Type HYDROcodone/APAP 7.5-325MG [[place] 1 tab PO Q4H PRN 3 Days #18 tab 06/28/18 07/22/18 Rx 7.5-325] cefTRIAXone [Rocephin] 2,000 mg IVP Q24HR #42 vial 06/28/18 07/22/18 Rx Aspirin 81 mg PO DAILY 5 Days #5 chewable 07/08/18 07/22/18 Rx Allergies Allergy/AdvReac Type Severity Reaction Status Date / Time hydromorphone [From Dilaudid] Allergy Rash/Hives Verified 07/22/18 08:02 meperidine [From Demerol] Allergy Itching Verified 07/22/18 08:02 Penicillins Allergy Anaphylaxis Verified 07/22/18 08:02 propoxyphene [From Darvon] Allergy Itching Verified 07/22/18 08:02 Surgical - Exam Vital Signs Temp Pulse Resp BP Pulse Ox 97.5 F L 76 16 144/80 96 07/22/18 07:52 07/22/18 07:52 07/22/18 07:52 07/22/18 07:52 07/22/18 07:52 - General well developed, well nourished, no distress - Eyes PERRL - ENT normal pinna - Neck no masses - Respiratory normal expansion - Cardiovascular Rhythm: regular - Abdomen Abdomen: soft, non tender - Integumentary Chronic large pilonidal cyst with evidence of abscess Assessment and Plan Assessment: Chronic pilonidal cyst with squamous cell carcinoma. We'll perform debridement and excision of pilonidal cyst
[2018-07-22] MEDS ORDERED: GLYCOPYRROLATE 0.2 MG/ML 2 ML VIAL ONE (09:06)
[2018-07-22] MEDS ORDERED: LIDOCAINE 1% INJ 10MG/ML (20 ML MDV) ONE (09:06)
[2018-07-22] MEDS ORDERED: MIDAZOLAM 2 MG/2 ML VIAL ONE (09:06)
[2018-07-22] MEDS ORDERED: fentaNYL (PF) 50 MCG/ML 2 ML AMP ONE (09:06)
[2018-07-22] MEDS ORDERED: PROPOFOL 10 MG/ML 20 ML VIAL IV ONE (09:06)
[2018-07-22] MEDS ORDERED: BUPIVACAIN-EPI 0.5%-1:200,000 30 ML VIAL SQ ONE (09:43)
[2018-07-22] MEDS ORDERED: LACTATED RINGERS 1,000 ML IV ONE (09:56)
--- NOTE | 2018-07-22 10:15 | P.OP ---
Date of Procedure: 07/22/18 Preoperative Diagnosis: History of chronically infected pilonidal cyst Squamous cell carcinoma pilonidal cyst Postoperative Diagnosis: Same Procedure(s) Performed: Excision of pilonidal cyst Anesthesia: MAC, spinal Surgeon: Raf Smith Estimated Blood Loss (ml): 20 Pathology: other (Pilonidal cyst) Condition: stable Disposition: PACU Description of Procedure: The patient's placed in the operative table in the prone position. He received a spinal anesthetic. He received IV anesthesia. His possible cyst area was prepped and draped usual sterile fashion. Using a 15 blade the skin at the pilonidal cyst tract was incised. And then using left cautery the pilonidal cyst was excised to the level of healthy fat tissue. The specimen was sent to pathology. The wound was inspected for hemostasis. Any small bleeding points were ligated. A wet-to-dry Kerlix dressing was placed in the wound. Sterile dressings applied. Patient top she will was sent to recovery room in stable condition.
[2018-07-22] MEDS: MORPHINE SULFATE 10 MG/ML SYRINGE IVP ONE ×2 (10:20→10:28)
[2018-07-22] MEDS ORDERED: diphenhydrAMINE 50 MG/ML 1 ML VIAL IVP ONE (10:21)
[2018-07-22 10:28] VITALS: TEMP 96.8
[2018-07-22] MEDS ORDERED: KETOROLAC 30 MG/ML 1 ML VIAL IVP ONE (10:31)
[2018-07-22 10:33] VITALS: RESP 18
[2018-07-22] MEDS ORDERED: HYDROcodone/APAP 7.5-325MG 1 EACH TAB PO ONE ×2 (12:36)
[2018-07-22 13:05] VITALS: BP 116/76; PULSE 61
== END 2018-07-22 13:50 | disposition home or self-care (01) ==
LOC: OR 07:43
PROVIDERS: ATTEND Surgery
DX: C76.3 Malignant neoplasm of pelvis (principal); L05.01 Pilonidal cyst with abscess; F17.210 Nicotine dependence, cigarettes, uncomplicated; Z79.82 Long term (current) use of aspirin; Z88.5 Allergy status to narcotic agent; Z88.0 Allergy status to penicillin; Z83.3 Family history of diabetes mellitus; Z79.891 Long term (current) use of opiate analgesic; Z79.899 Other long term (current) drug therapy
CPT/HCPCS: 11770; 88304; J2250; J1200; J1644; J1100; J2270; J2405; J2001; J3010; J1885; J2704

== ENCOUNTER 2018-07-25 13:08 | Emergency (ER) | payer OTHER ==
[2018-07-25 13:17] VITALS: RESP 16; TEMP 98.7
[2018-07-25] MEDS ORDERED: MORPHINE SULFATE 4 MG/ML SYRINGE IVP STA ×2 (13:58→16:27)
--- NOTE | 2018-07-25 14:29 | ED ---
General Adult HPI <Js Bui - Last Filed: 07/25/18 15:42> - General Source: patient, RN notes reviewed Mode of arrival: ambulatory Limitations: no limitations <Vish Mccoy - Last Filed: 07/25/18 19:58> - General Chief complaint: Skin/Abscess/Foreign Body Stated complaint: Surgical complications Time Seen by Provider: 07/25/18 13:23 - History of Present Illness Initial comments: 38-year-old male presents to the emergency department for a chief complaint of Complications of the excision site. Patient had a pilonidal cyst with SCC excised about a month ago and then had a revisional surgery 3 days ago. She states that this has been bleeding significantly over the past several days. States that he did try to call the visiting nurses but was not able to get through. Patient states that this morning and started have a very foul smell. Patient states he is in significant pain as well. Patient denies fevers or chills.Patient has no other complaints at this time including shortness of breath, chest pain, abdominal pain, nausea or vomiting, headache, or visual changes. (Vish Mccoy) - Related Data Previous Rx's Medication Instructions Recorded RX: HYDROcodone/APAP 7.5-325MG 1 tab PO Q4H PRN 3 Days #18 tab 06/28/18 [[place] 7.5-325] RX: cefTRIAXone [Rocephin] 2,000 mg IVP Q24HR #42 vial 06/28/18 RX: Aspirin 81 mg PO DAILY 5 Days #5 chewable 07/08/18 Allergies Allergy/AdvReac Type Severity Reaction Status Date / Time hydromorphone [From Dilaudid] Allergy Rash/Hives Verified 07/25/18 13:17 meperidine [From Demerol] Allergy Itching Verified 07/25/18 13:17 Penicillins Allergy Anaphylaxis Verified 07/25/18 13:17 propoxyphene [From Darvon] Allergy Itching Verified 07/25/18 13:17 Review of Systems ROS Other: All systems not noted in ROS Statement are negative. <Js Bui - Last Filed: 07/25/18 15:42> ROS Other: All systems not noted in ROS Statement are negative. <Nadine,Vish P - Last Filed: 07/25/18 19:58> ROS Statement: Those systems with pertinent positive or pertinent negative responses have been documented in the HPI. Past Medical History Past Medical History: No Reported History Additional Past Medical History / Comment(s): Rectal Cyst. PICC line on right arm History of Any Multi-Drug Resistant Organisms: None Reported Past Surgical History: Ear Surgery Additional Past Surgical History / Comment(s): pylonidal cyst Past Psychological History: No Psychological Hx Reported Smoking Status: Current every day smoker - Past Family History Mother Family Medical History: Diabetes Mellitus <Vish Mccoy P - Last Filed: 07/25/18 19:58> General Exam Limitations: no limitations General appearance: alert, in no apparent distress Head exam: Present: atraumatic, normocephalic, normal inspection Eye exam: Present: normal appearance, PERRL, EOMI. Absent: scleral icterus, conjunctival injection, periorbital swelling ENT exam: Present: normal exam, mucous membranes moist Neck exam: Present: normal inspection, full ROM. Absent: tenderness, meningismus, lymphadenopathy Respiratory exam: Present: normal lung sounds bilaterally. Absent: respiratory distress, wheezes, rales, rhonchi, stridor Cardiovascular Exam: Present: regular rate, normal rhythm, normal heart sounds. Absent: systolic murmur, diastolic murmur, rubs, gallop, clicks GI/Abdominal exam: Present: soft, normal bowel sounds. Absent: distended, tenderness, guarding, rebound, rigid Rectal exam: Present: other (patient has large incision for excised pilonidal cyst removal, packing noted) Neurological exam: Present: alert, oriented X3, CN II-XII intact Psychiatric exam: Present: normal affect, normal mood <Vish Mccoy P - Last Filed: 07/25/18 19:58> Course Vital Signs 07/25/18 07/25/18 07/25/18 13:14 13:40 17:25 Temperature 98.7 F Pulse Rate 121 H 94 89 Respiratory 16 16 Rate Blood Pressure 136/91 123/89 O2 Sat by Pulse 98 99 Oximetry Medical Decision Making - Lab Data Result diagrams: 07/25/18 14:32 07/25/18 14:32 <Js Bui - Last Filed: 07/25/18 15:42> - Lab Data Result diagrams: 07/25/18 14:32 07/25/18 14:32 <Vish Mccoy - Last Filed: 07/25/18 19:58> - Medical Decision Making 38-year-old male with a pilonidal abscess status post excision. Patient has packing placed, he had some hemorrhage prior to arrival. Wound does have some serosanguineous purulent drainage. I discussed case with Dr. Smith, will change dressing, wet-to-dry. and patient is stable for outpatient follow-up. (Js Bui) 38-year-old male presents to the emergency department for a chief complaint of cut the complications of excision site. Patient had a pilonidal cyst excised about one month ago and had a revisional surgery 3 days ago. States it has been bleeding several days and today had a very foul odor. On exam and do not see significant amount of pus or evidence for infection. No current active bleeding. CBC and CMP unremarkable. Patient is a mild white count of 10.9. Lactic acid 0.7. Blood cultures and wound culture are pending. Patient currently on Rocephin through PICC line at home. Dr. Bui spoke with Dr Smith who recommends removing packing including foam and replacing it with what Curlex. Recommended following up with him outpatient. Was able to pack wound with the help of Tomasa MYLES. Patient did tolerate this procedure well although it was painful. Patient is an [place] at home which she will continue to take. He will return here if he has any worsening symptoms. Otherwise he will follow-up with surgeon tomorrow. (Vish Mccoy) - Lab Data Lab Results 07/25/18 07/25/18 07/25/18 Range/Units 14:32 14:32 14:32 WBC 10.9 H (3.8-10.6) k/uL RBC 4.74 (4.30-5.90) m/uL Hgb 13.2 (13.0-17.5) gm/dL Hct 39.4 (39.0-53.0) % MCV 83.1 (80.0-100.0) fL MCH 27.9 (25.0-35.0) pg MCHC 33.5 (31.0-37.0) g/dL RDW 15.4 (11.5-15.5) % Plt Count 246 (150-450) k/uL Neutrophils % 74 % Lymphocytes % 17 % Monocytes % 6 % Eosinophils % 2 % Basophils % 0 % Neutrophils # 8.1 H (1.3-7.7) k/uL Lymphocytes # 1.8 (1.0-4.8) k/uL Monocytes # 0.7 (0-1.0) k/uL Eosinophils # 0.2 (0-0.7) k/uL Basophils # 0.0 (0-0.2) k/uL PT (9.0-12.0) sec INR (<1.2) APTT (22.0-30.0) sec Sodium 138 (137-145) mmol/L Potassium 4.3 (3.5-5.1) mmol/L Chloride 103 (98-107) mmol/L Carbon Dioxide 27 (22-30) mmol/L Anion Gap 8 mmol/L BUN 14 (9-20) mg/dL Creatinine 0.73 (0.66-1.25) mg/dL Est GFR (CKD-EPI)AfAm >90 (>60 ml/min/1.73 sqM) Est GFR (CKD-EPI)NonAf >90 (>60 ml/min/1.73 sqM) Glucose 86 (74-99) mg/dL Plasma Lactic Acid Kel[place] 0.7 (0.7-2.0) mmol/L Calcium 9.4 (8.4-10.2) mg/dL Total Bilirubin 0.6 (0.2-1.3) mg/dL AST 15 L (17-59) U/L ALT 21 (21-72) U/L Alkaline Phosphatase 42 (38-126) U/L Total Protein 7.2 (6.3-8.2) g/dL Albumin 4.0 (3.5-5.0) g/dL 07/25/18 Range/Units 14:32 WBC (3.8-10.6) k/uL RBC (4.30-5.90) m/uL Hgb (13.0-17.5) gm/dL Hct (39.0-53.0) % MCV (80.0-100.0) fL MCH (25.0-35.0) pg MCHC (31.0-37.0) g/dL RDW (11.5-15.5) % Plt Count (150-450) k/uL Neutrophils % % Lymphocytes % % Monocytes % % Eosinophils % % Basophils % % Neutrophils # (1.3-7.7) k/uL Lymphocytes # (1.0-4.8) k/uL Monocytes # (0-1.0) k/uL Eosinophils # (0-0.7) k/uL Basophils # (0-0.2) k/uL PT 10.6 (9.0-12.0) sec INR 1.0 (<1.2) APTT 24.2 (22.0-30.0) sec Sodium (137-145) mmol/L Potassium (3.5-5.1) mmol/L Chloride (98-107) mmol/L Carbon Dioxide (22-30) mmol/L Anion Gap mmol/L BUN (9-20) mg/dL Creatinine (0.66-1.25) mg/dL Est GFR (CKD-EPI)AfAm (>60 ml/min/1.73 sqM) Est GFR (CKD-EPI)NonAf (>60 ml/min/1.73 sqM) Glucose (74-99) mg/dL Plasma Lactic Acid Kelvin (0.7-2.0) mmol/L Calcium (8.4-10.2) mg/dL Total Bilirubin (0.2-1.3) mg/dL AST (17-59) U/L ALT (21-72) U/L Alkaline Phosphatase (38-126) U/L Total Protein (6.3-8.2) g/dL Albumin (3.5-5.0) g/dL Disposition <Js Bui N - Last Filed: 07/25/18 15:42> Is patient prescribed a controlled substance at d/c from ED?: No Time of Disposition: 16:35 <Vish Mccoy - Last Filed: 07/25/18 19:58> Clinical Impression: Postoperative bleeding from incision Disposition: HOME SELF-CARE Condition: Good Instructions (If sedation given, give patient instructions): Wound Infection (ED), Acute Wound Care (ED) Additional Instructions: Please follow up with Dr. Smith tomorrow. Please return to the emergency department if you have any worsening symptoms. Referrals: Fabio Yusuf DO [Primary Care Provider] - 1-2 days Raf Smith MD [STAFF PHYSICIAN] - 1-2 days
[2018-07-25] MEDS: SODIUM CHLORIDE 0.9% 500 ML 500 ML IV SCH ×2 (14:45→16:10)
[2018-07-25 14:57] LABS: ALT 21 U/L (21-72); AST 15 U/L (17-59); Alkaline Phosphatase 42 U/L (38-126); Anion Gap 8 mmol/L; Blood Urea Nitrogen 14 mg/dL (9-20); Calcium 9.4 mg/dL (8.4-10.2); Carbon Dioxide 27 mmol/L (22-30); Chloride 103 mmol/L (98-107); Glucose 86 mg/dL (74-99); Potassium 4.3 mmol/L (3.5-5.1); Sodium 138 mmol/L (137-145); Total Bilirubin 0.6 mg/dL (0.2-1.3); Total Protein 7.2 g/dL (6.3-8.2)
[2018-07-25 14:58] LABS: Partial Thromboplastin Time 24.2 sec (22.0-30.0); Prothrombin Time 10.6 sec (9.0-12.0)
[2018-07-25 15:07] LABS: Basophils % (A) 0 %; Eosinophils # (A) 0.2 k/uL (0-0.7); Eosinophils % (A) 2 %; HCT 39.4 % (39.0-53.0); HGB 13.2 gm/dL (13.0-17.5); Lymphocytes # (A) 1.8 k/uL (1.0-4.8); Lymphocytes % (A) 17 %; MCH 27.9 pg (25.0-35.0); MCHC 33.5 g/dL (31.0-37.0); MCV 83.1 fL (80.0-100.0); Mean Platelet Volume 6.9; Monocytes # (A) 0.7 k/uL (0-1.0); Monocytes % (A) 6 %; Neutrophils # (A) 8.1 k/uL (1.3-7.7); Neutrophils % (A) 74 %; Platelet Count 246 k/uL (150-450); RBC 4.74 m/uL (4.30-5.90); RDW 15.4 % (11.5-15.5); WBC 10.9 k/uL (3.8-10.6)
[2018-07-25] MEDS ORDERED: HYDROmorphone 1 MG/ML 1 ML SYRINGE IVP STA (15:51)
[2018-07-25 17:26] VITALS: BP 123/89; PULSE 89
== END 2018-07-25 15:25 | disposition home or self-care (01) ==
LOC: EC 13:08
DX: L76.21 Postprocedural hemorrhage of skin and subcutaneous tissue following a dermatologic procedure (principal); F17.200 Nicotine dependence, unspecified, uncomplicated; Z88.0 Allergy status to penicillin; Z88.5 Allergy status to narcotic agent; Z95.828 Presence of other vascular implants and grafts; Z53.8 Procedure and treatment not carried out for other reasons
CPT/HCPCS: 99283; 96374; 96376; 96361; 36415; 80053; 83605; 85025; 85610; 85730; 87040; 87070; 87205; J2270

== ENCOUNTER → 2018-08-05 | Day surgery (SDC) | payer OTHER ==
[2018-08-05 16:09] VITALS: BP 148/96; PULSE 97; RESP 16; TEMP 98.2
== END ==
LOC: CATHCVL 16:08
PROVIDERS: ATTEND Internal Medicine Infectious Disease
DX: L03.818 Cellulitis of other sites (principal); L05.91 Pilonidal cyst without abscess; M86.8X8 Other osteomyelitis, other site; M19.90 Unspecified osteoarthritis, unspecified site; F32.9 Major depressive disorder, single episode, unspecified; E66.01 Morbid (severe) obesity due to excess calories; Z68.41 Body mass index [BMI] 40.0-44.9, adult; Z79.2 Long term (current) use of antibiotics; Z79.891 Long term (current) use of opiate analgesic; Z88.5 Allergy status to narcotic agent; Z88.0 Allergy status to penicillin
CPT/HCPCS: 36410; 76937; 71260; C1751; Q9967

== ENCOUNTER → 2018-08-05 | Outpatient (CLI) | payer OTHER ==
--- NOTE | 2018-08-05 13:30 | CT ---
EXAMINATION TYPE: CT chest w con DATE OF EXAM: 08/05/2018 COMPARISON: None this location, chest x-ray 03/04/2018 HISTORY: Previous abnormal exam lung field. CT DLP: 678.5 mGycm, Automated exposure control for dose reduction was used. CONTRAST: Performed injected with 100 mL of Isovue 300. TECHNIQUE: Axial images were obtained at 5 mm thick sections. Reconstructed images are reviewed on [employer] [facility] computer in the coronal plane. FINDINGS: Portion of the thyroid visualized is normal. No suspicious lung nodules or focal infiltrates are present. No enlarged mediastinal or hilar adenopathy is evident. The ascending aorta diameter at the level o f the main pulmonary artery is 3.3 cm. The main pulmonary artery diameter at the bifurcation is 2.[address] sections are obtained through the upper abdomen. Abdomen is essentially unremarkable. IMPRESSIONS: 1. No acute pulmonary process.
== END | disposition home or self-care (01) ==
LOC: RADCTMAIN 10:07
PROVIDERS: ATTEND Nurse Practitioner Adult Health
DX: R91.8 Other nonspecific abnormal finding of lung field (principal); Z88.0 Allergy status to penicillin; Z88.5 Allergy status to narcotic agent
CPT/HCPCS: 71260; Q9967